=== PATIENT | female | born 1990 | race Hispanic/Latino ===

== ENCOUNTER 2021-05-09 19:20 | Emergency (ER) | payer SELFPAY ==
--- OUTSIDE RECORDS SUMMARY | 2021-05-09 19:23 | XMS REPORT | Continuity of Care Document ---
:1990 Author Organization [facility] t Address [address] [place] [address] Care Team Providers Name Role Phone Unavailable Unavailable Unavailable Problems Condition Condition Condition Status Onset Resolution Last Treating Co mments Source Name Details Category Date Date Treatment Clinician Date Type 2 Type [address] [facility] diabetes diabetes [facility] - mellitus mellitus Memori a with with l hyperglyce hyperglyce Ou tpati gilbert, gilbert, ent without without Clinics long-term long-term current current use of use of insulin insulin Pain of Pain of Diagnosis [facility] - thigh thigh Memoria l Outpati ent Clinics Allergies, Adverse Reactions, Alerts This patient has no known allergies or adverse reactions. Medications Ordered Filled Start Stop Current Ordering Indication Dosage Frequency Signature Comments Components Source Medication Medication Date Date Medication? Clinician (SIG) Name Name Metformin Metformin Yes Sharon [address] [facility] HCl HCl [place] [facility] Procedures This patient has no known procedures. Encounters Start End Encounter Admission Attending Care Care Encounter Source Date/Time Date/Time Type Type Clinicians Facility Department ID 2020 2020 [facility] [id number] [facility] 16:20[facility]00 16:20:00 [facility] Family Medicine l Medicine Outpati ent Clinics 2020-01-21 2020-01-21 [facility] [id number] [facility] 13:00:00 13:00:00 [facility] Family Medicine l Medicine Outpati ent Clinics 2019-11-22 2019-11-22 [facility] [id number] [facility] 15[facility]00[facility] 15:00:[address] [place] Medicine Medicine Outpati ent Clinics 2019-10-23 2019-10-23 [facility] [id number] [facility] 15:20:00 15:20:00 t [facility] Family Medicine Medicine Outpati ent Clinics Results This patient has no known results.
[2021-05-09] MEDS ORDERED: KETOROLAC 30 MG/ML INJ ONE (23:21)
--- NOTE | 2021-05-09 23:57 | ER ---
Nurse's Notes [facility] Name: Mary Knox Age: 31 yrs Sex: Female : 1990 Arrival Date: 05/09/2021 Time: 19:23 Bed DIS2 Private MD: Diagnosis: Pain in right shoulder Presentation: 05/09 20:00 Chief complaint: Patient states: I am having pain in my right shoulder that radiates to jb4 my fingers. It started this morning. I did not injure it to my knowledge. Coronavirus screen: Client denies travel out of the [place] in the last 14 days. Ebola Screen: No symptoms or risks identified at this time. Initial Sepsis Screen: Does the patient meet any 2 criteria? No. Patient's initial sepsis screen is negative. Does the patient have a suspected source of infection? No. Patient's initial sepsis screen is negative. Risk Assessment: Do you want to hurt yourself or someone else? Patient reports no desire to harm self or others. Onset of symptoms was May 09, 2021. Transition of care: patient was not received from another setting of care. 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 - Social history:: Smoking status: Patient denies any tobacco usage or history of. Patient/guardian denies using alcohol, street drugs. Screenin:44 Abuse screen: Denies threats or abuse. Nutritional screening: No deficits noted. em Tuberculosis screening: No symptoms or risk factors identified. Fall Risk None identified. Assessment: 05/10 00:46 General: Appears in no apparent distress. uncomfortable, Behavior is calm. Pain: em Complains of pain in left elbow. Vital Signs: 05/09 20:00 BP 133 / 85; Pulse 76; Resp 16; Temp 98.2(TE); Pulse Ox 99% on R/A; Weight 90.72 kg jb4 (R); Height 5 ft. 0 in. (152.40 cm) (R); Pain 8/10; 20:00 Body Mass Index 39.06 (90.72 kg, 152.40 cm) jb4 ED Course: 19:23 Patient arrived in ED. cf2 20:02 Triage completed. jb4 20:03 Arm band placed on right wrist. jb4 22:40 [facility] cp 22:40 Junito Epperson MD is Attending Physician. cp 22:44 Chauncey Castañeda, RN is Primary Nurse. em 22:44 Patient has correct armband on for positive identification. em 23:53 XRAY Shoulder RIGHT 2 view In Process Unspecified. EDMS 23:54 Don Mix MD is Referral Physician. cp 05/10 00:46 No provider procedures requiring assistance completed. Patient did not have IV access em during this emergency room visit. Administered Medications: 05/09 23:02 Drug: Ketorolac 30 mg Route: IM; Site: left deltoid; em 23:59 Follow up: Response: No adverse reaction; Marked relief of symptoms; Pain is decreased em Outcome: 23:56 Discharge ordered by MD. cp 05/10 00:47 Discharged to home ambulatory. em Condition: good Discharge instructions given to patient, Instructed on discharge instructions, follow up and referral plans. Demonstrated understanding of instructions, follow-up care, medications, Prescriptions given X 2. 00:48 Patient left the ED. em Signatures: Dispatcher [employer] [facility] Chauncey Castañeda, RN RN em Zack Bowling PA PA cp Bryson, James, RN RN jb4 Jonn Alcazar cf2
--- NOTE | 2021-05-09 23:57 | EDPHYS ---
Physician Documentation [facility] Name: Mary Knox Age: 31 yrs Sex: Female : 1990 Arrival Date: 05/09/2021 Time: 19:23 Bed DIS2 Private MD: ED Physician Junito Epperson HPI: 05/09 22:55 This 31 yrs old Female presents to ER via Ambulatory with complaints of cp Shoulder Pain, FINGER PAIN. 22:55 The patient or guardian complains of pain, that is acute. right anterior and right cp upper shoulder. Context: resulted from an unknown reason, The patient reports no decreased range of motion. The patient reports no obvious deformity. Onset: The symptoms/episode began/occurred this morning. 22:55 Associated signs and symptoms: Pertinent positives: tingling. 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 - Social history:: Smoking status: Patient denies any tobacco usage or history of. Patient/guardian denies using alcohol, street drugs. ROS: 23:00 Constitutional: Negative for body aches, chills, fever, poor PO intake. cp 23:00 Eyes: Negative for injury, pain, redness, and discharge. cp 23:00 ENT: Negative for ear pain, sore throat, difficulty swallowing, difficulty handling secretions. 23:00 Neck: Negative for pain with movement, pain at rest, stiffness. 23:00 Cardiovascular: Negative for chest pain, edema, palpitations. 23:00 Respiratory: Negative for cough, shortness of breath, wheezing. 23:00 Abdomen/GI: Negative for abdominal pain, nausea, vomiting, and diarrhea. 23:00 Back: Negative for pain at rest, pain with movement, radiated pain. 23:00 MS/extremity: Positive for pain, tenderness, of the right shoulder, Negative for injury or acute deformity, decreased range of motion, paresthesias, swelling. 23:00 Neuro: Negative for headache. 23:00 All other systems are negative. Exam: 23:10 Constitutional: The patient appears in no acute distress, alert, awake, cp non-diaphoretic, non-toxic, well developed, well nourished, obese. 23:10 Head/Face: Normocephalic, atraumatic. cp 23:10 Eyes: Periorbital structures: appear normal, Conjunctiva: normal, no exudate, no injection, Sclera: no appreciated abnormality, Lids and lashes: appear normal, bilaterally. 23:10 Neck: C-spine: vertebral tenderness, is not appreciated, crepitus, is not appreciated, ROM/movement: is normal, is supple, without pain, no range of motions limitations. 23:10 Chest/axilla: Inspection: normal, Palpation: is normal, no crepitus, no tenderness. 23:10 Cardiovascular: Rate: normal, Rhythm: regular, Pulses: Pulses are 2+ in right radial artery. 23:10 Respiratory: the patient does not display signs of respiratory distress, Respirations: normal, no use of accessory muscles, no retractions, labored breathing, is not present, Breath sounds: are clear throughout. 23:10 Musculoskeletal/extremity: Extremities: grossly normal except: noted in the anterior and super aspect right shoulder: pain, tenderness, ROM: limited active range of motion due to pain, in the right shoulder, the right fourth and fifth fingers Tingling of extremity. Vital Signs: 20:00 BP 133 / 85; Pulse 76; Resp 16; Temp 98.2(TE); Pulse Ox 99% on R/A; Weight 90.72 kg jb4 (R); Height 5 ft. 0 in. (152.40 cm) (R); Pain 8/10; 20:00 Body Mass Index 39.06 (90.72 kg, 152.40 cm) jb4 MDM: 22:47 Patient medically screened. cp 23:00 Differential diagnosis: tendonitis, sprain, bursitis. cp 23:55 Data reviewed: vital signs, nurses notes, radiologic studies, plain films. cp 23:55 Counseling: I had a detailed discussion with the patient and/or guardian regarding: the cp historical points, exam findings, and any diagnostic results supporting the discharge/admit diagnosis, radiology results. 23:55 Response to treatment: the patient's symptoms have mildly improved after treatment, and cp as a result, I will discharge patient. 05/09 22:48 Order name: XRAY Shoulder RIGHT 2 view cp 05/09 23:47 Order name: Naeem; Complete Time: 00:46 cp Administered Medications: 23:02 Drug: Ketorolac 30 mg Route: IM; Site: left deltoid; em 23:59 Follow up: Response: No adverse reaction; Marked relief of symptoms; Pain is decreased em Disposition: 05/10 06:48 Co-signature as Attending Physician, Junito Epperson MD. [email or web address] Disposition Summary: 05/09/21 23:56 Discharge Ordered Location: Home cp Problem: new cp Symptoms: have improved cp Condition: Stable cp Diagnosis - Pain in right shoulder cp Followup: cp - With: Don Mix MD - When: 2 - 3 days - Reason: Worsening of condition Discharge Instructions: - Discharge Summary Sheet cp - Shoulder Pain cp - Shoulder Range of Motion Exercises cp Forms: - Medication Reconciliation Form cp - Thank You Letter cp - Antibiotic Education cp - Prescription Opioid Use cp Prescriptions: - Cyclobenzaprine 10 mg Oral Tablet - take 1 tablet by ORAL route every 8 hours As needed; 20 tablet; Refills: 0, cp Product Selection Permitted - Diclofenac Sodium 75 mg Oral Tablet Sustained Release - take 1 tablet by ORAL route 2 times per day; 30 tablet; Refills: 0, Product cp Selection Permitted Signatures: Dispatcher [employer] Chauncey Lerner, RN RN Zack Gomez PA PA cp Bryson, James, RN RN jbJunito Saba MD MD [email or web address]
[2021-05-10 01:17] VITALS: BP 133/85; TEMP 98.2; O2SAT 99
--- NOTE | 2021-05-10 08:26 | RAD REPORT ---
EXAM DESCRIPTION: RAD - Shoulder Right 2 View - 05/09/2021 11:53 pm CLINICAL HISTORY: PAIN COMPARISON: No comparisons FINDINGS: No right shoulder fracture or dislocation. IMPRESSION: Unremarkable right shoulder.
== END 2021-05-10 00:48 | disposition home or self-care (01) ==
LOC: ER 19:20
DX: M25.511 Pain in right shoulder (principal); E11.9 Type 2 diabetes mellitus without complications
CPT/HCPCS: 96372; 99283

== ENCOUNTER 2021-07-27 21:08 | Emergency (ER) | payer SELFPAY ==
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
[2021-07-27] MEDS ORDERED: TETANUS & DIPHTHERIA TOX,ADULT 0.5 ML VIAL ONE (23:48)
[2021-07-27] MEDS ORDERED: HYDROCODONE/APAP 5/325 MG TAB ONE (23:48)
[2021-07-28 00:37] VITALS: BP 127/84; TEMP 97.7; O2SAT 100
--- OUTSIDE RECORDS SUMMARY | 2021-08-08 06:57 | XMS REPORT | Continuity of Care Document ---
:1990 Author Organization [facility] t Address [address] [place] [address] Care Team Providers Name Role Phone Unavailable [...] Sharon [address] [facility] HCl HCl [place] [facility] Procedures This patient has no known procedures. Encounters Start End Encounter Admission Attending Care Care Encounter Source Date/Time Date/Time Type Type Clinicians Facility Department ID 2020 2020 [facility] [id number] [facility] 16:20[facility]00 16:20:00 [facility] Family Medicine l Medicine Outpati ent Clinics 2020-01-21 2020-01-21 [facility] [id number] [facility] 13:00:00 13:00:00 [facility] Family Medicine l Medicine Outpati ent Clinics 2019-11-22 2019-11-22 [facility] [id number] 15:00:00 15:00:00 [facility] Medicine Medicine Outpati ent Clinics 2019-10-23 2019-10-23 [facility] [id number] 15:20:00 15:20:00 t [facility] Family Medicine Medicine Outpati ent Clinics Results This patient has no known results.
== END 2021-07-27 23:00 | disposition home or self-care (01) ==
LOC: ER 21:08
DX: T24.201A Burn of second degree of unspecified site of right lower limb, except ankle and foot, initial encounter (principal); E11.9 Type 2 diabetes mellitus without complications; X12.XXXA Contact with other hot fluids, initial encounter; Z23 Encounter for immunization
CPT/HCPCS: 90471; 90714; 99283

== ENCOUNTER 2022-08-03 08:27 | Inpatient (IN) | payer BC ==
--- OUTSIDE RECORDS SUMMARY | 2022-08-03 08:31 | XMS REPORT | Continuity of Care Document ---
:1990 Author Organization [facility] t Address [facility] [place] [address] Care Team Providers Name Role Phone Sharon Zamora Attending Clinician Unavailable Syed Michael Attending Clinician Unavailable Syed Michael Admitting Clinician Unavailable Payers Payer Name Policy Type Policy Number Effective Date Expiration Date S sofia [employer] 6 [id number] 2021 Common Spiri t [employer] Shield of 00:00:00 - [facility] Problems Condition Condition Condition Status Onset Resolution Last Treating Co mments Source Name Details Category Date Date Treatment Clinician Date [id number] Type 2 Problem Active Common diabetes Spirit mellitus - [facility] long-term current use of insulin Allergies, Adverse Reactions, Alerts Allergy Allergy Status Severity Reaction(s) Onset Inactive Treating Comm ents Source Name Type Date Date Clinician No Known DA Active U 2021-09 [facility] Social History Social Habit Start Date Stop Date Quantity Comments Source History of Tobacco Use Co mmon [facility] Sex Assigned At Com mon [facility] Smoking Status Start Date Stop Date Source Never Smoker Common [facility] Medications Ordered Filled Start Stop Current Ordering Indication Dosage Frequency Signature Comments Components Source Medication Medication Date Date Medication? Clinician (SIG) Name Name Metformin Metformin Yes Sharon 1 tablet Common HCl HCl [place] with a Spirit meal [facility] metFORMIN metFORMIN No 1{table BID metFORMIN HCl 1000 MG HCl 1000 MG t_with_ HCl 1000 a_meal} MG metFORMIN metFORMIN No 1{table BID metFORMIN HCl 1000 MG HCl 1000 MG t_with_ HCl 1000 a_meal} MG metFORMIN metFORMIN No 1{table BID metFORMIN HCl 1000 MG HCl 1000 MG t_with_ HCl 1000 a_meal} MG metFORMIN metFORMIN No 1{table BID metFORMIN HCl 1000 MG HCl 1000 MG t_with_ HCl 1000 a_meal} MG Vital Signs Vital Name Observation Time Observation Value Comments Source height 2021-11-16 14:40:00 61 [in_i] [facility] weight 2021-11-16 14:40:00 194.8 [lb_av] [facility] temperature 2021-11-16 14:40:00 97.8 [degF] [facility] bmi 2021-11-16 14:40:00 36.8 kg/m2 [facility] oximetry 2021-11-16 14:40:00 100 % [facility] respiratory rate 2021-11-16 14:40:00 16 /min Comm on [facility] blood pressure 2021-11-16 14:40:00 116 mm[Hg] [facility] - systolic [facility] blood pressure 2021-11-16 14:40:00 76 mm[Hg] [facility] diastolic [facility] height 2021-10-15 13:20:00 61 [in_i] [facility] weight 2021-10-15 13:20:00 193.8 [lb_av] [facility] temperature 2021-10-15 13:20:00 98.1 [degF] [facility] bmi 2021-10-15 13:20:00 36.61 kg/m2 [facility] oximetry 2021-10-15 13:20:00 99 % Common S pirit [facility] respiratory rate 2021-10-15 13:20:00 16 /min Comm on [facility] blood pressure 2021-10-15 13:20:00 120 mm[Hg] Common [facility] - systolic [facility] blood pressure 2021-10-15 13:20:00 70 mm[Hg] Common [facility] - diastolic [facility] Procedures This patient has no known procedures. Encounters Start End Encounter Admission Attending Care Care Encounter Source Date/Time Date/Time Type Type Clinicians Facility Department ID 2022-02-01 Outpatient Sera, STJEFFLC STLMLC [id number] Common 10:30:01 Sharon [facility] 2021-11-12 Outpatient Sera, STJEFFLC STLMLC [id number] Common 09:59:02 Sharon [facility] 2021-10-21 Outpatient Sera, STJEFFLC STLMLC [id number] Common 14:38:49 Sharon [facility] 2021-10-21 Outpatient Sera, STLMLC STLMLC [id number] Common 14:34:32 Sharon [facility] 2021-10-21 Outpatient Sera, STJEFFLC STLMLC [id number] Common 11:58:11 Sharon [id number] [facility] 2021-10-21 Outpatient Sera, STLMLC STLMLC [id number] Common 11:03:51 Sharon [address] [facility] 2022-07-07 2022-07-09 Inpatient UR Fernanda, HCAWH OBANTE [id number] [address] [facility] 11:27:00 13:44:00 ad Woman' s [facility] 2021-11-30 2021-11-30 (TEL) STLMLC STLMLC [id number] Co mmon 00:00:00 00:00:00 [facility] 2021-11-16 2021-11-16 OFFICE STLC STLC [id number] Co mmon 00:00:00 00:00:00 VISIT EST Spir it PT LEVEL 3 - [facility] 2021-11-05 2021-11-05 (TEL) STLMLC STLMLC [id number] Co mmon 00:00:00 00:00:00 Spirit - [facility] 2021-10-15 2021-10-15 OFFICE STLMLC STLMLC [id number] Co mmon 00:00:00 00:00:00 VISIT EST Spir it PT LEVEL 3 - [facility] 2020 2020 [id number] Common 16:20:00 16:20:[address] [facility] [address] [facility] 2020-01-21 2020-01-21 [facility] [id number] Common 13:00:00 13:00:00 t [facility] [address] [facility] 2019-11-22 2019-11-22 [facility] [id number] Common 15:00:00 15:00:00 t [facility] [address] [facility] 2019-10-23 2019-10-23 [facility] [id number] Common 15:20:00 15:20:00 t [facility] [address] [facility] Results Test Description Test Time Test Comments Results Result Comments Source GLUBED 2022-07-09 10:15:00 Test Item Value Reference Range Interpretation Comme nts GLUBED (test code = GLUBED) 99 mg/dL 65-110 N [id number] 06:32:00 Test Item Value Reference Range Interpretation Comments GLUBED (test code = GLUBED) 101 mg/dL 65-110 N [id number] 20:57:00 Test Item Value Reference Range Interpretation Comments GLUBED (test code = GLUBED) 129 mg/dL 65-110 H [id number] 20:22:00 Test Item Value Reference Range Interpretation Comments GLUBED (test code = GLUBED) 176 mg/dL 65-110 H [id number] 10:29:00 Test Item Value Reference Range Interpretation Comments GLUBED (test code = GLUBED) 119 mg/dL 65-110 H [id number] 06:29:00 Test Item Value Reference Range Interpretation Comments GLUBED (test code = GLUBED) 124 mg/dL 65-110 H [id number] 21:07:00 Test Item Value Reference Range Interpretation Comments GLUBED (test code = GLUBED) 105 mg/dL 65-110 N AG HEPATITIS B [id number] 17:00:00 Test Item Value Reference Range Interpretation Comments AG HEPATITIS B SURFACE (test code NONREACTIVE NONREACTIVE = HBSAG) AB HEPATITIS C [id number] 17:00:00 Test Item Value Reference Range Interpretation Comments AB HEPATITIS C (test code = NONREACTIVE NONREACTIVE HCVAB) SIGNAL TO CUTOFF (test code = 0.14 <0.80 N CUTOFF) AB [id number] 17:00:00 Test Item Value Reference Range Interpretation Comments AB TREPONEMA (test code = TREPAB) NONREACTIVE NONREACTIVE AB HIV 1 17:00:00 Test Item Value Reference Range Interpretation Comments AB HIV 1 2 (test NONREACTIVE NONREACTIVE [facility] = [id number]) 4th Gen HIV Ag/Ab Combo Screen [id number] 15:45:00 Test Item Value Reference Range Interpretation Comments GLUBED (test code = GLUBED) 91 mg/dL 65-110 N COMPREHENSIVE METABOLIC [id number] 15:36:00 Test Item Value Reference Range Interpretation Comments SODIUM (test code = NA) 137 mEq/L 135-145 N POTASSIUM (test code = K) 3.8 mEq/L 3.5-5.0 N CHLORIDE (test code = CL) 102 mEq/L 100-115 N CARBON DIOXIDE (test code = CO2) 26 mEq/L 22-31 N ANION GAP (test code = GAP) 13.10 10-20 N GLUCOSE (test code = GLU) 83 mg/dL 65-110 N BLOOD UREA NITROGEN (test code = 9 mg/dL 7-18 N BUN) GLOMERULAR FILTRATION RATE (test 117 ml/min >60 N code = GFR) CREATININE (test code = CREAT) 0.6 mg/dL 0.5-1.0 N TOTAL PROTEIN (test code = PROT) 6.9 gm/dL 6.3-8.2 N ALBUMIN (test code = ALB) 3.0 gm/dL 3.4-4.8 L CALCIUM (test code = CA) 8.6 mg/dL 8.4-10.2 N BILIRUBIN TOTAL (test code = BILT) 0.3 mg/dL 0.2-1.0 N SGOT/AST (test code = AST) 17 units/L 15-37 N SGPT/ALT (test code = ALT) 31 units/L 12-78 N ALKALINE PHOSPHATASE TOTAL (test 84 units/L 46-116 N code = ALKP) UR PROTEIN/CREATININE [id number] 15:28:00 Test Item Value Reference Range Interpretation Comments UR PROTEIN RANDOM (test code = <6.0 mg/dL PROTU) UR CREATININE RANDOM (test 33.3 mg/dL code = CREATU) PROTEIN/CREATININE RATIO (test 180.1 mg/gcrea <200 code = P/CRATIO) CBC W/AUTO [id number] 14:27:00 Test Item Value Reference Range Interpretation Comments WHITE BLOOD CELL (test code = WBC) 7.8 K/mm3 6.5-12.3 N RED BLOOD CELL (test code = RBC) 4.40 M/mm3 3.51-4.69 N HEMOGLOBIN (test code = HGB) 12.1 g/dL 10.1-13.8 N HEMATOCRIT (test code = HCT) 38.2 % 32.5-41.8 N MEAN CELL VOLUME (test code = MCV) 86.8 fL 84.6-96.6 N MEAN CELL HGB (test code = MCH) 27.5 pg 27.3-33.9 N MEAN CELL HGB CONCETRATION (test 31.7 gm/dL 32.0-34.2 L code = MCHC) RED CELL DISTRIBUTION WIDTH (test 13.0 % 12.2-16.3 N code = RDW) PLATELET COUNT (test code = PLT) 233 K/mm3 134-363 N MEAN PLATELET VOLUME (test code = 11.3 fL 9.2-12.7 N MPV) NEUTROPHIL % (test code = NT%) 74.8 % 57.9-77.3 N LYMPHOCYTE % (test code = LY%) 16.3 % 14.5-29.7 N MONOCYTE % (test code = MO%) 6.0 % 3.6-10.2 N EOSINOPHIL % (test code = EO%) 2.3 % 0.0-3.0 N BASOPHIL % (test code = BA%) 0.3 % 0.1-0.9 N NEUTROPHIL # (test code = NT#) 5.9 K/mm3 LYMPHOCYTE # (test code = LY#) 1.3 K/mm3 MONOCYTE # (test code = MO#) 0.5 K/mm3 EOSINOPHIL # (test code = EO#) 0.18 K/mm3 BASOPHIL # (test code = BA#) 0.0 K/mm3 RBC MORPHOLOGY REQUIRED (test code NORMAL NORMAL = RBCM) PLATELET MORPHOLOGY REQUIRED (test NORMAL NORMAL code = PLTMR) RUPTURE OF [id number] 13:57:00 Test Item Value Reference Range Interpretation Comments RUPTURE OF MEMBRANES (test code NON-RUPTURED = ROM) HEMOGLOBIN [id number] 00:00:00 Test Item Value Reference Range Interpretation Comments A1C (test code = 4548-4) 7.9 HEMOGLOBIN [id number] 00:00:00 Test Item Value Reference Range Interpretation Comments A1C (test code = 4548-4) 10.5
[2022-08-03] MEDS ORDERED: PENICILLIN G POT 5 MU/VIAL IV ONE (08:42)
[2022-08-03] MEDS ORDERED: NA CHLORIDE 0.9% 100 ML ONE (08:44)
[2022-08-03] MEDS ORDERED: PENICILLIN 5 MU in NA CHLORIDE 0.9% 100 ML IV ONE (08:53)
[2022-08-03] MEDS ORDERED: Ringers Lactate 1,000 ML IV PRN (08:53)
[2022-08-03] MEDS ORDERED: PROMETHAZINE INJ 25 MG/ML AMP IM PRN (08:53)
[2022-08-03] MEDS ORDERED: MEPERIDINE HCL 25 MG/ML SYR IV PRN (08:53)
[2022-08-03] MEDS ORDERED: BUTORPHANOL 1 MG/ML INJ IV PRN (08:53)
[2022-08-03] MEDS ORDERED: CARBOPROST TROME 250 MCG/ML IM PRN (08:53)
[2022-08-03] MEDS ORDERED: METHYLERGONOVINE 0.2MG/ML AMP IM PRN (08:53)
[2022-08-03] MEDS ORDERED: OXYTOCIN/LR 20 UNIT/1,000 ML BAG IV SCH ×2 (09:00→10:00)
[2022-08-03] MEDS ORDERED: Ringers Lactate 1,000 ML IV SCH (09:00)
[2022-08-03] MEDS ORDERED: LIDOCAINE 1% MPF 30 ML VIAL ONE (09:03)
[2022-08-03] MEDS ORDERED: BISACODYL 10 MG RECTAL SUPP RC PRN (09:31)
[2022-08-03] MEDS ORDERED: DOCUSATE NA/SENNA CONC 1 TAB PO PRN (09:31)
[2022-08-03] MEDS ORDERED: ACETAMINOPHEN 500 MG TAB PO PRN (09:31)
[2022-08-03] MEDS ORDERED: Oxycodone HCl/Acetaminophen 1 TAB TAB PO PRN ×2 (09:31)
[2022-08-03] MEDS ORDERED: DIPHENHYDRAMINE 25 MG TAB/CAP PO PRN (09:31)
--- NOTE | 2022-08-03 09:56 | PREOPHP ---
Date of Admission: 08/03/2022 History Of Present Illness: A 32-year-old, 4, para 3, at 37 weeks 6 days, came in active lab or. During the , noted to be insulin-dependent diabetic. Seen in consultation with Dr. Delbert guardado, high wireless sales consultant in [place]. Also noted to have oligohydramnios. Was scheduled for i nduction tomorrow. Came in today in active rapidly advancing labor. Family History: Cleft lip in a cousin. Otherwise, no significant family history. Past Surgical History: No previous surgeries. Allergies: NO ALLERGIES. Medications: Metformin prior to admission and then subsequently insulin. Social History: Does not smoke. Physical Examination: HEENT: Clear. Pupils equal, round, reactive to light and accommodation. Conjunctivae well perfused . No oral, lingual, or buccal lesions. Chest and Lungs: Clear. Heart: Without murmurs, thrills, heaves, rubs. Breasts: Without masses. Abdomen: Term size. Extremities: Clear without edema, cyanosis, or clubbing. Assessment And Plan: The patient was 3 cm on admission, nahed regularly, went to 8 cm within t he next 30-45 minutes. Anticipate vaginal delivery. She is strep positive. Penicillin has been started. The patient is also Rh posit farooq and immune to rubella. DALIA/KYRIE Voice ID: [id number]
[2022-08-03] MEDS: IBUPROFEN 600 MG TAB PO PRN ×3 (09:59→22:43)
--- NOTE | 2022-08-03 09:59 | DN ---
Surgeon: Hawk Oliva MD Procedure In Detail: This is a 32-year-old, 4, para 3, at 37 weeks and 6 days, scheduled for induction tomorrow. Came in active labor, rapidly advancing, went from 3 cm to 8 cm within 35 minut es, the 40 minutes tops. Delivered spontaneously of an estimated 6 pounds female, Apgars 9 and 10. No episiotomy. No laceration. Schultze delivery of the placenta, which was inspected and intact and normal. Less than 250 cc blood loss. Rh positive, immune to rubella, strep positive. She did rece farooq 5 million units of penicillin prior to the delivery. Tolerated all procedures well. Will be ysabel cked for diabetes. We will let her monitor herself. Her insulin dose of course will probably change rather rapidly and the patient is aware of that. Final Diagnoses: Term intrauterine at 37 weeks 6 days, insulin-dependent diabetes, oligohy dramnios, spontaneous labor, vaginal delivery, beta strep prophylaxis. DALIA/MODL Voice ID: [id number] Report ID: [id number]
[2022-08-03 10:20] VITALS: BMI 39.6
[2022-08-03 11:04] LABS: Absolute Lymphocytes (CBC) 1.4 K/uL (0.7-4.9); Hematocrit 36.6 % (36.0-45.0); Lymphocytes % 22.5 % (15.3-44.8); MPV 9.7 fL (7.6-11.3); RBC Red Blood Cell Count 4.35 M/uL (3.86-4.86)
[2022-08-03 11:22] LABS: Urine Bilirubin NEGATIVE (Negative); Urine Blood Negative (Negative); Urine Clarity Turbid (Clear); Urine Color Yellow (Yellow); Urine Glucose NEGATIVE (Negative); Urine Mucus Slight /HPF (None Seen); Urine Protein TRACE (Negative); Urine RBC <5 /HPF (None Seen); Urine Urobilinogen Normal (Normal)
[2022-08-03] MEDS ORDERED: PENICILLIN 2.5 MU in NA CHLORIDE 0.9% 100 ML IV SCH (12:45)
[2022-08-04] MEDS: IBUPROFEN 600 MG TAB PO PRN ×2 (04:45→11:01)
--- NOTE | 2022-08-04 09:39 | DS ---
Hospital Course: A 32-year-old, 4, para 3, at 37 weeks and 6 days, scheduled for induction, the next day came in active rapidly advancing labor, went from 3 to 8 cm and then delivered with an h our or so after admission, delivered of a 6-pound 2-ounce female, Apgars 9 and 10. No episiotomy. N o laceration. Schultze delivery of the placenta. 250 cc or less blood loss. Given 5 million units of penicillin as she was beta strep positive. The patient is Rh positive, immune to rubella. Postpa rtum; afebrile, ambulating, voiding normally. Lochia is normal. No complaints or problems. Offered flu shot and Tdap shot. She will return to the office in 3 to 6 weeks for followup to report any te mperature elevation of 100 degrees or greater, severe pain, heavy bleeding, or any other type of abno rmalities. Requests no analgesics on dismissal. Full instructions given. Final Diagnoses: Intrauterine gestation, 37 weeks 6 days, spontaneous labor and delivery, insulin-de pendent diabetes during the . Consultation with high-ecological risk assessor Dr. Michael at [facility]. Oligohydramnios, penicillin prophylaxis, beta strep positive. NBC/MODL Voice ID: [id number] Report ID: [id number]
[2022-08-04 14:08] VITALS: BP 103/68; TEMP 97.6
[2022-08-04 21:13] LABS: RPR (Rapid Plasma Reagin) NON-REACT (NON-REACT)
[2022-08-06 12:12] LABS: HBsAG Nonreactive (Nonreactive)
== END 2022-08-04 11:55 | disposition home or self-care (01) | DRG 807 ==
LOC: 2ND-WC 08:27
PROVIDERS: ADMIT Specialist; ATTEND Specialist
PROC: 10E0XZZ Delivery of Products of Conception, External Approach (ICD-10-PCS; principal; 2022-08-03)
DX: O41.03X0 Oligohydramnios, third trimester, not applicable or unspecified (principal); Z37.0 Single live birth; O99.824 Streptococcus B carrier state complicating childbirth; O24.424 Gestational diabetes mellitus in childbirth, insulin controlled; Z79.4 Long term (current) use of insulin; Z3A.37 37 weeks gestation of pregnancy
CPT/HCPCS: 36415; 81001; 85025; 86592; 86901; 87340; J2175; J2210; J2540; J2590; J7120

== ENCOUNTER 2022-10-30 17:48 | Emergency (ER) | payer BC ==
--- OUTSIDE RECORDS SUMMARY | 2022-10-30 17:51 | XMS REPORT | Continuity of Care Document ---
:1990 Author Organization [facility] t Address [address] [place] [address] Care Team Providers Name Role Phone Pcp, Patient Does Not Have A Primary Care Physician [id number] KATIANA GOMEZ Attending Clinician Unavailable Sharon Zamora Attending Clinician Unavailable Katiana Gomez MD Attending Clinician Syed Michael Attending Clinician Unavailable KATIANA GOMEZ Admitting Clinician Unavailable Syed Michael Admitting Clinician Unavailable Payers Payer Name Policy Type Policy Number Effective Date Expiration Date S sof[facility] [id number] 2021 00:00:00 [employer] 6 [id number] 2021 Common Spiri t [employer] Shield of 00:00:[address] - [facility] Problems Condition Condition Condition Status Onset Resolution Last Treating Co mments Source Name Details Category Date Date Treatment Clinician Date Encounter Encounter Disease Active Overview: Univers for for 10-06 Formattin ity of consultati consultati 00:00: g of this [place] on for on for 00 note Medical female female might be Branch sterilizat sterilizat different ion ion from the original. Added automatic ally from request for surgery [id number] Gestationa Gestationa Disease Active U nivers l diabetes l diabetes 4-28 [place] y of mellitus, mellitus, [place] ante[place] antepartum 00 Me dical Branch Vaginal Vaginal Disease Active Univers yeast yeast -28 [place] of infection [place] Abnormal Abnormal Disease Active Overview: Un raman maternal maternal -21 Formattin ity of glucose glucose 00:00: g of this [place] tolerance, tolerance, 00 note Me dical antepartum antepartum might be Branch different from the original. 1hr gtt 136mgdl, needs 3hr-faile d 3hr gtt Fasting 981hr 1972hr 1343hr 124 Multiparit Multiparit Disease Active U nivers y y 4-20 ity of 00:00: [place] 00 Medical Branch Obesity Obesity Disease Active Univers affecting affecting 4-20 [place] [facility] Branch Supervisio Supervisio Disease Active U nivers n of high n of high 4-20 ity of risk risk 00:00: [place] , , 00 Me dical antepartum antepartum Br anch History of History of Disease Active Overview : Univers hepatitis hepatitis 4-20 Formattin i ty of B B 00:00: g of this [place] 00 note Medical might be Branch different from the original. In previous [id number] Type 2 Problem Common diabetes Spirit mellitus - [facility] long-term current use of insulin Allergies, Adverse Reactions, Alerts Allergy Allergy Status Severity Reaction(s) Onset Inactive Treating Comm ents Source Name Type Date Date Clinician No Known DA Active U 2021-09 [facility] 0-12 [facility] 00:[facility]: [facility] [place] NO KNOWN Drug Active Univers ALLERGIE Class ity of S [facility] Social History Social Habit Start Date Stop Date Quantity Comments Source History of Common Spirit - Tobacco Use [facility] Alcohol intake 2022-10-06 2022-10-06 Ex-drinker University 00:00:00 00:00:00 (finding) [facility] Exposure to 2022-09-25 2022-10-05 Not sure University SARS-CoV-2 00:00:00 10:52:00 [facility] (event) [place] Tobacco use and 2016-01-14 2016-01-14 Smokeless tobacco Un iversity of exposure 00:00:00 00:00:00 non-user [facility] Sex Ass[birth year] At [birth year] Universit y of 00:00:00 00:00:00 [facility] Smoking Status Start Date Stop Date Source Never smoked tobacco [facility] Medications Ordered Filled Start Stop Current Ordering Indication Dosage Frequency Signature Comments Components Source Medication Medication Date Date Medication? Clinician (SIG) Name Name metFORMIN 2021-09 Yes Univers 1,000 mg 1-09 ity of tablet 00:00: [address] metFORMIN 2021-09 Yes Univers 1,000 mg 1-09 ity of tablet 00:00: [address] metFORMIN 2021-09 Yes Univers 1,000 mg 1-09 ity of tablet 00:00: [address] metFORMIN 2021-09 Yes Univers 1,000 mg 1-09 ity of tablet 00:00: [address] LEVEMIR 2021-09 Yes Univers FLEXTOUCH 0-16 ity of U-100 00:00: [place] INSULN 100 00 Medical unit/mL (3 Branch mL) injection LEVEMIR 2021-09 Yes Univers FLEXTOUCH 0-16 ity of U-100 00:00: [place] INSULN 100 00 Medical unit/mL (3 Branch mL) injection LEVEMIR 2021-09 Yes Univers FLEXTOUCH 0-16 ity of U-100 00:00: [place] INSULN 100 00 Medical unit/mL (3 Branch mL) injection LEVEMIR 2021-09 Yes Univers FLEXTOUCH 0-16 ity of U-100 00:00: [place] INSULN 100 00 Medical unit/mL (3 Branch mL) injection proMETHazin 2022- No [id number] 25mg Take 1 Univers e 01-22 tablet by ity of (PHENERGAN) 00:00: 00:00 mouth [place] 25 mg 00 :00 every 4 Medical tablet (four) Branch hours as needed for Nausea and Vomiting (N/V). proMETHazin 2022- No [id number] 25mg Take 1 Univers e 01-22 tablet by ity of (PHENERGAN) 00:00: 00:00 [place] 25 mg 00 :00 every 4 Medical tablet (four) Branch hours as needed for Nausea and Vomiting (N/V). clotrimazol 2022- No [id number] 1{appli Insert 1 Univers e 01-21 cator} Applicator ity of (CLOTRIMAZO 00:00: 00:00 into [facility] [place] [facility]) 1 % 00 :00 vagina at Medic al vaginal bedtime. Branch cream clotrimazol 2022- No [id number] 1{appli Insert 1 Univers e 01-21 cator} Applicator ity of (CLOTRIMAZO 00:00: 00:00 into [place] [address]) 1 % 00 :00 vagina at Medic al vaginal bedtime. Branch cream PNV without Yes [id number] 1{each} Take 1 Univers Ca-Iron 4-20 Each by ity of PsCmplx-FA 00:00: mouth [place] (SELECT-OB, daily. Medica l FOLIC Branch ACID,) 29-1 mg Chew PNV without 2015- Yes [id number] 1{each} Take 1 Univers Ca-Iron 4-20 Each by ity of PsCmplx-FA 00:00: mouth [place] (SELECT-OB, daily. Medica l FOLIC Branch ACID,) 29-1 mg Chew PNV without 2015- Yes [id number] 1{each} Take 1 Univers Ca-Iron 4-20 Each by ity of PsCmplx-FA 00:00: mouth [place] (SELECT-OB, 00 daily. Medica l FOLIC Branch ACID,) 29-1 mg Chew PNV without 2015- Yes [id number] 1{each} Take 1 Univers Ca-Iron 4-20 Each by ity of PsCmplx-FA 00:00: mouth [place] (SELECT-OB, 00 daily. Medica l FOLIC Branch ACID,) 29-1 mg Chew Metformin Metformin Yes Sharon 1 tablet Common HCl HCl [place] with a Spirit meal [facility] metFORMIN metFORMIN No 1{table BID [...] Observation Time Observation Value Comments Source height 2022-10-22 08:00:00 61 [in_i] [facility] weight 2022-10-22 08:00:00 190.6 [lb_av] [facility] temperature 2022-10-22 08:00:00 97.6 [degF] [facility] bmi 2022-10-22 08:00:00 36.01 kg/m2 [facility] oximetry 2022-10-22 08:00:00 97 % [facility] respiratory rate 2022-10-22 08:00:00 16 /min Comm [facility] blood pressure 2022-10-22 08:00:00 119 mm[Hg] [facility] systolic [facility] blood pressure 2022-10-22 08:00:00 77 mm[Hg] [facility] diastolic [facility] Systolic blood 2022-10-06 15:23:00 123 mm[Hg] Univer sity of [facility] Diastolic blood 2022-10-06 15:23:00 86 mm[Hg] Unive rsity [facility] Heart rate 2022-10-06 15:23:00 65 /min [facility] Body temperature 2022-10-06 15:23:00 36.67 [facility] 2022-10-06 15:23:00 16 /min [facility] Body height 2022-10-06 15:23:00 157.5 cm Universi ty [facility] [place] Body weight 2022-10-06 15:23:00 87.544 kg Universi ty [facility] BMI 2022-10-06 15:23:00 35.30 kg/m2 Universi [facility] Oxygen saturation in 2022-10-06 15:23:00 99 /min University Arterial blood by [facility] Pulse oximetry Branch respiratory rate 2021-11-16 14:40:00 16 /min [facility] blood pressure 2021-11-16 14:40:00 116 mm[Hg] Common [facility] systolic [facility] blood pressure 2021-11-16 14:40:00 76 mm[Hg] Common [facility] diastolic [facility] height 2021-11-16 14:40:00 61 [in_i] [facility] weight 2021-11-16 14:40:00 194.8 [lb_av] [facility] temperature 2021-11-16 14:40:00 97.8 [degF] [facility] bmi 2021-11-16 14:40:00 36.8 kg/m2 [facility] oximetry 2021-11-16 14:40:00 100 % [facility] height 2021-10-15 13:20:00 61 [in_i] [facility] weight 2021-10-15 13:20:00 193.8 [lb_av] [facility] temperature 2021-10-15 13:20:00 98.1 [degF] [facility] bmi 2021-10-15 13:20:00 36.61 kg/m2 [facility] oximetry 2021-10-15 13:20:00 99 % [facility] respiratory rate 2021-10-15 13:20:00 16 /min [facility] blood pressure 2021-10-15 13:20:00 120 mm[Hg] Common [facility] - systolic [facility] blood pressure 2021-10-15 13:20:00 70 mm[Hg] Common [facility] - diastolic [facility] Procedures This patient has no known procedures. Encounters Start End Encounter Admission Attending Care Care Encounter Source Date/Time Date/Time Type Type Clinicians Facility Department ID 2022-10-20 Outpatient Keith GOMEZ [facility] [id number] Univers 16:56:14 KATIANA castle [facility] 2022-02-01 Outpatient [place], STLMLC STLC [id number] Common 10:30:01 Sharon [facility] 2021-11-12 Outpatient [place], STLMLC STLC [id number] Common 09:59:02 Sharon [facility] 2021-10-21 Outpatient [place], STLMLC STLC [id number] Common 14:38:49 Sharon [facility] 2021-10-21 Outpatient [place], STLMLC STLMLC [id number] Common 14:34:32 Sharon [facility] 2021-10-21 Outpatient [place], STLMLC STLMLC [id number] Common 11:58:11 Sharon [address] [facility] 2021-10-21 Outpatient [place], STLMLC STLMLC [id number] Common 11:03:51 Sharon [address] [facility] 2022-10-25 2022-10-25 Telephone Patricia [facility] [id number] Univers 00:00:00 00:00:00 Katiana MEHTA [id number] i ty of [id number] [facility] [id number] [address] 2022-10-22 2022-10-22 OFFICE STLC STLC [id number] Co mmon 00:00:00 00:00:00 VISIT EST Spir it PT LEVEL 3 - [facility] 2022-10-20 2022-10-20 Outpatient Keith GOMEZ [facility] [id number] Univers 14:00:00 14:00:00 KATIANA castle [facility] 2022-10-06 2022-10-06 Outpatient R ADKARMA, [facility] [id number] Univers 09:30:00 09:57:01 KATIANA castle [facility] 2022-10-06 2022-10-06 Office Adum, [facility] [id number] Univers 09:30:00 09:57:01 Visit Katiana Sparrow JANINE [id number] i ty of W[place]'S 4[place]2.7.2.686 [place] [id number] [address] 2022-10-06 2022-10-06 Prep For Adkarma, [facility] [id number] Univers 00:00:00 00:00:00 Surgery Katiana Sparrow ELISE [id number] ity of [place] [id number] [place] PROFESS[place] [id number] Id dical [address] 2022-07-07 2022-07-09 Inpatient UR Fernanda, [facility] [id number] [facility] 11:27:00 13:44:00 Ziad [facility] 2021-11-30 2021-11-30 (TEL) STLMLC STLMLC [id number] Co mmon 00:00:00 00:00:00 [facility] 2021-11-16 2021-11-16 OFFICE STLMLC STLMLC [id number] Co mmon 00:00:00 00:00:00 VISIT EST Spir it PT LEVEL 3 - [facility] 2021-11-05 2021-11-05 (TEL) STLMLC STLMLC [id number] Co mmon 00:00:00 00:00:00 [facility] 2021-10-15 2021-10-15 OFFICE STLMLC STLMLC [id number] Co mmon 00:00:00 00:00:00 VISIT EST Spir it PT LEVEL 3 - [facility] 2020 2020 [facility] [id number] Common 16:20:00 16:20:[address] [facility] [address] [facility] 2020-01-21 2020-01-21 Outpatient Sigrid Mattat [id number] Common 13:00:00 13:00:00 [facility] [address] [facility] 2019-11-22 2019-11-22 Outpatient [place] [facility] [id number] Common 15:00:00 15:00:00 [facility] [address] [facility] 2019-10-23 2019-10-23 Outpatient [place]rid [place] [id number] Common 15:20:00 15:20:00 [facility] [address] [facility] Results Test Description Test Time Test Comments Results Result Comments Source HEMOGLOBIN A1C 2022-10-22 00:00:00 Test Item Value Reference Range Interpretation Comme nts A1C (test code = 4548-4) 5.4 [id number] 10:15:00 Test Item Value Reference Range Interpretation Comments GLUBED (test code = GLUBED) 99 mg/dL 65-110 N [id number] 06:32:00 Test Item Value Reference Range Interpretation Comments GLUBED (test code = GLUBED) 101 mg/dL 65-110 N [id number] 20:57:00 Test Item Value Reference Range Interpretation Comments GLUBED (test code = GLUBED) 129 mg/dL 65-110 H [id number] 20:22:00 Test Item Value Reference Range Interpretation Comments GLUBED (test code = GLUBED) 176 mg/dL 65-110 H [id number] 10:29:00 Test Item Value Reference Range Interpretation Comments GLUBED (test code = GLUBED) 119 mg/dL 65-110 H [id number] 06:29:00 Test Item Value Reference Range Interpretation Comments GLUBED (test code = GLUBED) 124 mg/dL 65-110 H [id number] 21:07:00 Test Item Value Reference Range Interpretation Comments GLUBED (test code = GLUBED) 105 mg/dL 65-110 N AG HEPATITIS B [id number] 17:00:00 Test Item Value Reference Range Interpretation Comments AG HEPATITIS B SURFACE (test code NONREACTIVE NONREACTIVE = HBSAG) AB HEPATITIS C [id number] 17:00:00 Test Item Value Reference Range Interpretation Comments AB HEPATITIS C (test code = NONREACTIVE NONREACTIVE HCVAB) SIGNAL TO CUTOFF (test code = 0.14 <0.80 N CUTOFF) AB [id number] 17:00:00 Test Item Value Reference Range Interpretation Comments AB TREPONEMA (test code = TREPAB) NONREACTIVE NONREACTIVE AB HIV 1 17:00:00 Test Item Value Reference Range Interpretation Comments AB HIV 1 2 (test NONREACTIVE NONREACTIVE Done by [employer] code = WSD45QQ) 4th Gen HIV Ag/Ab Combo Screen [id number] 15:45:00 Test Item Value Reference Range Interpretation Comments GLUBED (test code = GLUBED) 91 mg/dL 65-110 N COMPREHENSIVE METABOLIC [id number] 15:36:00 Test Item Value Reference Range Interpretation [...] 46-116 N code = ALKP) UR PROTEIN/CREATININE [id number] 15:28:00 Test Item Value Reference Range Interpretation Comments UR PROTEIN RANDOM (test code = <6.0 mg/dL PROTU) UR CREATININE RANDOM (test 33.3 mg/dL code = CREATU) PROTEIN/CREATININE RATIO (test 180.1 mg/gcrea <200 code = P/CRATIO) CBC W/AUTO [id number] 14:27:00 Test Item Value Reference Range Interpretation [...] NORMAL NORMAL code = PLTMR) RUPTURE OF [id number] 13:57:00 Test Item Value Reference Range Interpretation Comments RUPTURE OF MEMBRANES (test code NON-RUPTURED = ROM) HEMOGLOBIN [id number] 00:00:00 Test Item Value Reference Range Interpretation Comments A1C (test code = 4548-4) 7.9 HEMOGLOBIN [id number] 00:00:00 Test Item Value Reference Range Interpretation Comments A1C (test code = 4548-4) 10.5
[2022-10-30] MEDS ORDERED: Ringers Lactate 1,000 ML IV ONE (18:38)
[2022-10-30] MEDS ORDERED: METOCLOPRAMIDE 10 MG/2mL INJ ONE (18:38)
--- NOTE | 2022-10-30 19:02 | RAD REPORT ---
EXAM DESCRIPTION: CT - Head Brain Wo Cont - 10/30/2022 6:46 pm CLINICAL HISTORY: Dizziness COMPARISON: none TECHNIQUE: Computed axial tomography of the head was obtained. IV contrast was not requested. All CT scans are performed using dose optimization technique as appropriate and may include automated exposure control or mA/KV adjustment according to patient size. FINDINGS: An intracranial bleed is not seen The ventricles are normal in caliber No significant hypodense areas within the brain visualized No extra-axial fluid collection is noted. Fluid within the sinuses/ mastoids is not seen IMPRESSION: No acute intracranial abnormality is seen If patient's symptoms persist MRI of the brain would be recommended
[2022-10-30 19:10] LABS: Absolute Lymphocytes (CBC) 1.3 K/uL (0.7-4.9); Hematocrit 37.9 % (36.0-45.0); Lymphocytes % 20.2 % (15.3-44.8); MCV 84.3 fL (80-100); MPV 7.7 fL (7.6-11.3)
[2022-10-30 19:25] LABS: Albumin 3.7 g/dL (3.4-5.0); Bilirubin Total 0.4 mg/dL (0.2-1.0); Potassium 3.7 mmol/L (3.5-5.1); Protein, Total 8.1 g/dL (6.4-8.2)
--- NOTE | 2022-10-30 19:33 | EDPHYS ---
Physician Documentation [facility] Name: Mary Knox Age: 32 yrs Sex: Female : 1990 Arrival Date: 10/30/2022 Time: 17:49 Bed 8 Private MD: Sharon Zamora ED Physician Julius Kurtz HPI: 10/30 17:59 This 32 yrs old Female presents to ER via Ambulatory with complaints of jmm Headache, Nausea/Vomiting. 17:59 The patient complains of pain to the forehead. Onset: The symptoms/episode jmm began/occurred gradually, 1 day(s) ago. Associated signs and symptoms: Pertinent negatives: fever. Is a 32-year-old female with history of diabetes mellitus the presents emerged part with complaints of headache and vomiting beginning a day ago. Patient denies fever, neck stiffness. Pain was gradual onset. Denies any visual disturbances. Historical: - Allergies: 17:53 No Known Allergies; hb - PMHx: 17:53 diabetes mellitus; hb - Immunization history:: Adult Immunizations up to date. - Social history:: Smoking status: Patient denies any tobacco usage or history of. ROS: 17:59 Constitutional: Negative for fever, chills, and weight loss, Cardiovascular: Negative jmm for chest pain, palpitations, and edema, Respiratory: Negative for shortness of breath, cough, wheezing, and pleuritic chest pain. 17:59 Abdomen/GI: Positive for vomiting. 17:59 Neuro: Positive for headache. 17:59 All other systems are negative. Exam: 17:59 Constitutional: This is a well developed, well nourished patient who is awake, alert, jmm and in no acute distress. Head/Face: atraumatic. Eyes: EOMI, no conjunctival erythema appreciated ENT: Moist Mucus Membranes Neck: Trachea midline, Supple Chest/axilla: Normal chest wall appearance and motion. Cardiovascular: Regular rate and rhythm. No edema appreciated Respiratory: Normal respirations, no respiratory distress appreciated Abdomen/GI: Non distended Back: Normal ROM Skin: General appearance color normal MS/ Extremity: Moves all extremities, no obvious deformities appreciated, no edema noted to the lower extremities Neuro: Awake and alert Vital Signs: 17:52 BP 122 / 84; Pulse 81; Resp 16; Temp 97.7; Pulse Ox 100% on R/A; Weight 86.18 kg; hb Height 5 ft. (152.40 cm); Pain 0/10; 19:46 BP 120 / 74; Pulse 78; Resp 19; Temp 97.8; Pulse Ox 100% ; Pain 5/10; ke1 17:52 Body Mass Index 37.11 (86.18 kg, 152.40 cm) hb MDM: 17:59 Patient medically screened. [facility] 19:30 Data reviewed: vital signs, nurses notes. [facility] 19:30 I considered the following discharge prescriptions or medication management in the [facility] emergency department Medications were administered in the Emergency Department. See MAR. Counseling: I had a detailed discussion with the patient and/or guardian regarding: the historical points, exam findings, and any diagnostic results supporting the discharge/admit diagnosis, lab results, radiology results. ED course: Patient is alert nontoxic in appearance in the ED. Headache mild relief. Patient advised follow-up PCP otherwise given strict return precautions. Patient understood and agrees plan of care. I do not currently suspect subarachnoid hemorrhage or meningitis.. 10/30 18:01 Order name: CBC with Diff; Complete Time: 19:25 [facility] 10/30 18:01 Order name: CMP; Complete Time: 19:25 [facility] 10/30 18:05 Order name: CT Head Brain wo Cont; Complete Time: 19:03 [facility] 10/30 18:01 Order name: Saline Lock; Complete Time: 18:40 [facility] Administered Medications: 18:40 Drug: Reglan (metoCLOPramide) 20 mg Route: IVP; Site: right antecubital; bp 18:40 Drug: Lactated Ringers Solution 1000 ml Route: IV; Rate: 1000 bolus; Site: right bp antecubital; 19:47 Drug: Decadron - Dexamethasone 10 mg Route: IVP; Site: right antecubital; ke1 19:48 Follow up: Response: Medication administered at discharge. ke1 19:47 Drug: Ketorolac 15 mg Route: IVP; Site: right antecubital; ke1 19:47 Follow up: Response: Medication administered at discharge. ke1 Disposition Summary: 10/30/22 19:32 Discharge Ordered Location: Home [facility] Condition: Stable [facility] Diagnosis - Headache [facility] - Vomiting [facility] Followup: [facility] - With: Jack Alicea MD - When: 2 - 3 days - Reason: Recheck today's complaints, Continuance of care, Re-evaluation by your physician Discharge Instructions: - Discharge Summary Sheet jm - General Headache Without Cause jmm - Vomiting, Adult jm Forms: - Medication Reconciliation Form [facility] - Thank You Letter brittany - Antibiotic Education chet - Prescription Opioid Use [facility] Prescriptions: - ondansetron 4 mg Oral tablet,disintegrating - take 1 tablet by ORAL route every 4-6 hours As needed; 20 tablet; Refills: 0, [facility] Product Selection Permitted Signatures: Dispatcher [employer] EDMS Roberto Szymanski PA PA jmm Baxter, Heather, RN RN Supa Sarah, RN RN Omar Zimmer RN RN ke1
--- NOTE | 2022-10-30 19:33 | ER ---
Nurse's Notes [facility] Name: Mary Knox Age: 32 yrs Sex: Female : 1990 Arrival Date: 10/30/2022 Time: 17:49 Bed 8 Private MD: Sharon Zamora Diagnosis: Headache;Vomiting Presentation: 10/30 17:52 Chief complaint: N/V and headache x 2 days. Tolerating fluids, not tolerating food. hb Denies pain/fever. Coronavirus screen: Client presents with at least one sign or symptom that may indicate coronavirus-19. Standard/surgical mask placed on the client. Provider contacted for isolation considerations. Ebola Screen: No symptoms or risks identified at this time. Initial Sepsis Screen: Does the patient meet any 2 criteria? No. Patient's initial sepsis screen is negative. Does the patient have a suspected source of infection? No. Patient's initial sepsis screen is negative. Risk Assessment: Do you want to hurt yourself or someone else? Patient reports no desire to harm self or others. Onset of symptoms was October 29, 2022. 17:52 Method Of Arrival: Ambulatory hb 17:52 Acuity: VIMAL 3 hb Triage Assessment: 17:55 Headache History: The patient has had previous headaches and this one is different than bp previous episodes. General: Appears in no apparent distress. uncomfortable, Behavior is calm, cooperative, appropriate for age. Pain: Complains of pain in head Pain currently is 6 out of 10 on a pain scale. Pain began 1 day ago. Also complains of nausea. EENT: No deficits noted. Neuro: Level of Consciousness is awake, alert, obeys commands, Oriented to Appropriate for age. Cardiovascular: No deficits noted. Respiratory: No deficits noted. GI: Reports nausea. : No signs and/or symptoms were reported regarding the genitourinary system. Derm: No deficits noted. Musculoskeletal: No deficits noted. Historical: - Allergies: 17:53 No Known Allergies; hb - PMHx: 17:53 diabetes mellitus; hb - Immunization history:: Adult Immunizations up to date. - Social history:: Smoking status: Patient denies any tobacco usage or history of. Screenin:00 [facility] ED Fall Risk Assessment (Adult) History of falling in the last 3 months, bp including since admission No falls in past 3 months (0 pts). Abuse screen: Denies threats or abuse. Denies injuries from another. Nutritional screening: No deficits noted. Tuberculosis screening: No symptoms or risk factors identified. Assessment: 17:55 General: SEE TRIAGE NOTE. bp Vital Signs: 17:52 BP 122 / 84; Pulse 81; Resp 16; Temp 97.7; Pulse Ox 100% on R/A; Weight 86.18 kg; hb Height 5 ft. (152.40 cm); Pain 0/10; 19:46 BP 120 / 74; Pulse 78; Resp 19; Temp 97.8; Pulse Ox 100% ; Pain 5/10; ke1 17:52 Body Mass Index 37.11 (86.18 kg, 152.40 cm) hb ED Course: 17:49 Patient arrived in ED. am2 17:49 Sharon Zamora FNP-C is Private Physician. am2 17:50 [facility] 17:50 Julius Kurtz MD is Attending Physician. [facility] 17:53 Triage completed. hb 17:54 Arm band placed on. hb 18:00 Patient has correct armband on for positive identification. Bed in low position. Call bp light in reach. Side rails up X2. 18:13 Supa Montanez, SITA is Primary Nurse. bp 18:45 Inserted saline lock: 20 gauge in right antecubital area, using aseptic technique. bp Blood collected. 18:48 CT Head Brain wo Cont In Process Unspecified. EDMS 19:32 Jack Alicea MD is Referral Physician. [facility] 19:48 No provider procedures requiring assistance completed. IV discontinued. ke1 Administered Medications: 18:40 Drug: Reglan (metoCLOPramide) 20 mg Route: IVP; Site: right antecubital; bp 18:40 Drug: Lactated Ringers Solution 1000 ml Route: IV; Rate: 1000 bolus; Site: right bp antecubital; 19:47 Drug: Decadron - Dexamethasone 10 mg Route: IVP; Site: right antecubital; ke1 19:48 Follow up: Response: Medication administered at discharge. ke1 19:47 Drug: Ketorolac 15 mg Route: IVP; Site: right antecubital; ke1 19:47 Follow up: Response: Medication administered at discharge. ke1 Medication: 19:48 VIS not applicable for this client. ke1 Outcome: 19:32 Discharge ordered by MD. soto 19:48 Discharged to home ambulatory. ke1 19:48 Condition: good 19:48 Discharge instructions given to patient. 19:48 Patient left the ED. ke1 Signatures: Dispatcher [employer] EDMS Roberto Szymanski PA PA jmm Baxter, Heather RN RN Joya Burton Brian RN RN Omar Burns RN RN ke1
[2022-10-30 20:23] VITALS: O2SAT 100
[2022-10-30 20:25] VITALS: BP 120/74; TEMP 97.8
== END 2022-10-30 19:48 | disposition home or self-care (01) ==
LOC: ER 17:48
DX: R51.9 Headache, unspecified (principal); R11.10 Vomiting, unspecified; E11.9 Type 2 diabetes mellitus without complications
CPT/HCPCS: 85025; 36415; 80053; 70450; 96375; 96374; 99284; J2765; J7120

== ENCOUNTER 2025-06-17 11:30 | Emergency (ER) | payer BC ==
--- OUTSIDE RECORDS SUMMARY | 2025-06-17 11:36 | XMS REPORT | Continuity of Care Document ---
Author Name Unknown Address [address] [facility] [address] [place] [address] [facility] [address] [facility] [address] [place] [address] Care Team Providers Care Hospice Educator Name Role Phone PCP, PATIENT DOES NOT HAVE A Primary Care Physic ubaldo Unavailable Sharon Zamora Attending Clinician Unavailable KATIANA GOMEZ Attending Clinician Unavailable Leeann Adams Attending Clinician UnavailFAITH Hooks Attending Clinician UnavailFaith Farias Attending Clinician Unknown, Attending Attending Clinician Unavailab Beatrice Grande Attending Clinician Unavailable Homar Stephenson Attending Clinician Unavailable NIKUNJ BAUMAN Attending Clinician Unavailable NIKUNJ BAUMAN Attending Clinician Unavailable Doctor Unassigned, [place] Attending Clinician U KAY Dietz Attending Clinician Unavailable Pcp, Patient Does Not Have A Attending Clinician GERMAIN HIDALGO Attending Clinician Unavail able GERMAIN HIDALGO Attending Clinician Unavail able Germain Hidalgo MD Attending Clinician [phone] ALTAGRACIAASHELYYossi Evans Attending Clinician Unavaila ida Altagracia [employer] TEAM LEADAngel Attending Clinician [phone] Lab, Ang - Db Attending Clinician Unavailable Katiana Gomez MD Attending Clinician [phone] Syed Michael Attending Clinician Unavailable KATIANA GOMEZ Admitting Clinician Unavailable Physician, No Primary or Family Admitting Clinic ubaldo Unavailable Leeann Adams Admitting Clinician UnavailSyed Giron Admitting Clinician Unavailable GERMAIN HIDALGO Admitting Clinician Unavail able Payers Payer Name Policy Type Policy Number Effective Date Expirati on Date Source [facility] [id number] 2021 00:00:00 [place] [id number] 2024 00:00:00 [place] [address] [id number] 2021 00:00:00 Common [facility] Problems Condition Name Condition Details Condition Category Status Onset Date Resolution Date Last Treatment Date Treating Clinician Comments Source Encounter for consultati on for female sterilizat ion Encounter for consultati on for female sterilizat ion Disease Active 10-06 00:00: 00 Overview: Formattin g of this note might be different from the original. Added automatic ally from request for surgery [id number] [facility] Gestationa l diabetes mellitus, antepartum Gestationa l diabetes mellitus, antepartum Disease Active 01-21 00:00: 00 [facility] Vaginal yeast infection Vaginal yeast infection Disease Active 01-21 00:00: 00 [facility] Abnormal maternal glucose tolerance, antepartum Abnormal maternal glucose tolerance, antepartum Disease Active 01-14 00:00: 00 Overview: Formattin g of this note might be different from the original. 1hr gtt 136mgdl, needs 3hr-faile d 3hr gtt Fasting 981hr 1972hr 1343hr 124 [facility] Multiparit y Multiparit y Disease Active 01-13 00:00: 00 [facility] Obesity affecting Obesity affecting Disease Active 01-13 00:00: 00 [facility] Supervisio n of high risk , antepartum Supervisio n of high risk , antepartum Disease Active 01-13 00:00: 00 [facility] History of hepatitis B History of hepatitis B Disease Active 01-13 00:00: 00 Overview: Formattin g of this note might be different from the original. In previous [facility] [id number] Type 2 diabetes mellitus with hyperglyce gilbert, without long-term current use of insulin Problem [facility] Anemia Mild anemia Problem [facility] [id number] History of Bray's palsy Problem [facility] [id number] detention (current) use of oral hypoglycem ic drugs Problem [facility] Allergies, Adverse Reactions, Alerts Allergy Name Allergy Type Status Severity Reaction(s) Onset Date Inactive Date Treating Clinician Comments Source No Known Drug Allergie s DA Active U 20 00:00: 00 [facility] No Known Drug Allergie s DA Active U 3-13 00:00: 00 [facility] No Known Drug Allergie s DA Active U 2021-09 0-12 00:00: 00 [facility] NO KNOWN ALLERGIE S Drug Class Active [facility] Social History Social Habit Start Date Stop Date Quantity Comments Source ASSERTION 2024-07-12 00:00:00 [facility] History of Tobacco Use [facility] Alcoholic beverage intake 2025-01-18 00:00:00 2025-01-18 00:00:00 Ex-drinker (finding) [facility] Exposure to SARS-CoV-2 (event) 2023-01-29 00:00:00 2023-02-08 07:44:00 Not sure [facility] Alcohol intake 2023-02-08 00:00:00 2023-02-08 00:00:00 Ex-drinker (finding) [facility] History of Social function 2022-12-14 00:00:00 2022-12-14 00:00:00 [facility] Tobacco use and exposure 2016-01-14 00:00:00 2016-01-14 00:00:00 Smokeless tobacco non-user [facility] Sex assigned at 1990 00:00:00 1990 00:00:00 [facility] Smoking Status Start Date Stop Date Source Never smoked tobacco [facility] Medications Ordered Medication Name Filled Medication Name Start Date Stop Date Current Medication? Ordering Clinician Indication Dosage Frequency Signature (SIG) Comments Components Source vit/iron fum/folic ac ( 1 + 1 ORAL) 01-18 17:26: [address] [place] Status: Inactive [facility] cetirizine 10 mg tablet 01-18 00:00: 00 Yes [id number] 10mg Take 1 tablet by mouth at bedtime as needed for Allergies or Runny nose. [facility] insulin glargine (LANTUS U-100 INSULIN) 100 unit/mL injection 12-06 00:00: 00 Yes inject under the skin. [facility] valACYclovi r (VALTREX) 1 gram tablet 01-04 00:00: 00 01-12 04:59 :00 No [id number] 1g Take 1 tablet by mouth in the morning and 1 tablet at noon and 1 tablet in the evening. Do all this for 7 days. [facility] gadoteridol (PROHANCE-2 0 mL) injection 0.2 mL/kg 12-31 15:45: 00 12-31 15:33 :00 No [id number] .2mL/kg 0.2 mL/kg, Intravenou s, ONCE, 1 dose, On Tue12/31/22 at 1045, Routine [facility] acetaminoph en (TYLENOL) tablet 1,000 mg 12-22 15:45: 00 12-22 14:42 :00 No 1000mg 1,000 mg, Oral, ONCE, 1 dose, On Tue12/22/22 at 1045, Routine [facility] gabapentin (NEURONTIN) capsule 300 mg 12-22 14:30: 00 12-22 14:42 :00 No 300mg 300 mg, Oral, ONCE, 1 dose, On Tue12/22/22 at 0930, ERIK [facility] gabapentin 300 mg capsule 12-22 00:00: 00 12-30 04:59 :00 No [id number] 300mg Take 1 capsule by mouth in the morning and 1 capsule at noon and 1 capsule in the evening. Do all this for 7 days. [facility] LEVEMIR FLEXTOUCH U-100 INSULN 100 unit/mL (3 mL) injection 2021-09 0 00:00: 00 12-14 00:00 :00 No [facility] proMETHazin e (PHENERGAN) 25 mg tablet 01-22 00:00: 00 10-06 00:00 :00 No [id number] 25mg Take 1 tablet by mouth every 4 (four) hours as needed for Nausea and Vomiting (N/V). [facility] clotrimazol e (CLOTRIMAZO LE-7) 1 % vaginal cream 01-21 00:00: 00 10-06 00:00 :00 No [id number] 1{appli cator} Insert 1 Applicator into vagina at bedtime. [facility] PNV without Ca-Iron PsCmplx-FA (SELECT-OB, FOLIC ACID,) 29-1 mg Chew 01-13 00:00: 00 Yes [id number] 1{each} Take 1 Each by mouth daily. [facility] PNV without Ca-Iron PsCmplx-FA (SELECT-OB, FOLIC ACID,) 29-1 mg Chew 01-13 00:00: 00 Yes [id number] 1{each} Take 1 Each by mouth daily. [facility] metFORMIN HCl 1000 MG metFORMIN HCl 1000 MG No 1{table t_with_ a_meal} BID metFORMIN HCl 1000 MG Vital Signs Vital Name Observation Time Observation Value Comments S sofia Systolic blood pressure 2025-01-18 22:27:00 120 mm[Hg] [facility] Diastolic blood pressure 2025-01-18 22:27:00 77 mm[Hg] [facility] Heart rate 2025-01-18 22:27:00 95 /min [facility] Body temperature 2025-01-18 22:27:00 36.83 Eleni [facility] Respiratory rate 2025-01-18 22:27:00 13 /min [facility] Body height 2025-01-18 22:27:00 154.9 cm [facility] Body weight 2025-01-18 22:27:00 94.212 kg [facility] BMI 2025-01-18 22:27:00 39.24 kg/m2 [facility] Oxygen saturation in Arterial blood by Pulse oximetry 2025-01-18 22:27:00 99 /min [facility] height 2024-08-16 08:00:00 61 [in_i] [facility]mo n [facility] weight 2024-08-16 08:00:00 207.2 [lb_av] Co mmon [facility] temperature 2024-08-16 08:00:00 97.9 [degF] Com mon [facility] bmi 2024-08-16 08:00:00 39.15 kg/m2 Comm on [facility] oximetry 2024-08-16 08:00:00 97 % [facility] respiratory rate 2024-08-16 08:00:00 15 /min [facility] blood pressure systolic 2024-08-16 08:00:00 114 mm[Hg] Common [facility] blood pressure diastolic 2024-08-16 08:00:00 72 mm[Hg] Common [facility] height 2024-05-16 08:00:00 61 [in_i] Commo n [facility] weight 2024-05-16 08:00:00 202.0 [lb_av] Co mmon [facility] temperature 2024-05-16 08:00:00 97.2 [degF] Com [facility] bmi 2024-05-16 08:00:00 38.16 kg/m2 Comm on [facility] oximetry 2024-05-16 08:00:00 95 % Commo n [facility] respiratory rate 2024-05-16 08:00:00 15 /min [facility] blood pressure systolic 2024-05-16 08:00:00 124 mm[Hg] [facility] blood pressure diastolic 2024-05-16 08:00:00 77 mm[Hg] [facility] height 2024-05-16 08:00:00 61 [in_i] Commo n [facility] weight 2024-05-16 08:00:00 202.0 [lb_av] Co mmon [facility] temperature 2024-05-16 08:00:00 97.2 [degF] Com [facility] bmi 2024-05-16 08:00:00 38.16 kg/m2 Comm on [facility] oximetry 2024-05-16 08:00:00 95 % Commo n [facility] respiratory rate 2024-05-16 08:00:00 15 /min [facility] blood pressure systolic 2024-05-16 08:00:00 124 mm[Hg] Common [facility] blood pressure diastolic 2024-05-16 08:00:00 77 mm[Hg] [facility] height 2024-01-18 08:00:00 61 [in_i] Commo n [facility] weight 2024-01-18 08:00:00 200.4 [lb_av] Co mmon [facility] temperature 2024-01-18 08:00:00 98.2 [degF] Com [facility] bmi 2024-01-18 08:00:00 37.86 kg/m2 Comm on [facility] oximetry 2024-01-18 08:00:00 98 % Commo n [facility] respiratory rate 2024-01-18 08:00:00 15 /min [facility] blood pressure systolic 2024-01-18 08:00:00 119 mm[Hg] [facility] blood pressure diastolic 2024-01-18 08:00:00 74 mm[Hg] [facility] height 2023-10-19 08:20:00 61 [in_i] Commo n [facility] weight 2023-10-19 08:20:00 198.4 [lb_av] Co mmon [facility] temperature 2023-10-19 08:20:00 98.1 [degF] Com [facility] bmi 2023-10-19 08:20:00 37.48 kg/m2 Comm on [facility] oximetry 2023-10-19 08:20:00 96 % Commo n [facility] respiratory rate 2023-10-19 08:20:00 15 /min [facility] blood pressure systolic 2023-10-19 08:20:00 111 mm[Hg] [facility] blood pressure diastolic 2023-10-19 08:20:00 73 mm[Hg] [facility] height 2023-07-21 08:20:00 61 [in_i] Commo n [facility] weight 2023-07-21 08:20:00 201.4 [lb_av] Co [facility] temperature 2023-07-21 08:20:00 97.2 [degF] Com [facility] bmi 2023-07-21 08:20:00 38.05 kg/m2 Comm on [facility] oximetry 2023-07-21 08:20:00 95 % Commo n [facility] respiratory rate 2023-07-21 08:20:00 15 /min [facility] blood pressure systolic 2023-07-21 08:20:00 107 mm[Hg] [facility] blood pressure diastolic 2023-07-21 08:20:00 69 mm[Hg] Common [facility] weight 2023-04-20 08:20:00 200.2 [lb_av] Co mmon [facility] temperature 2023-04-20 08:20:00 97.3 [degF] Com mon [facility] bmi 2023-04-20 08:20:00 37.82 kg/m2 Comm on [facility] oximetry 2023-04-20 08:20:00 95 % Commo n [facility] respiratory rate 2023-04-20 08:20:00 15 /min [facility] blood pressure systolic 2023-04-20 08:20:00 108 mm[Hg] [facility] blood pressure diastolic 2023-04-20 08:20:00 72 mm[Hg] [facility] height 2023-04-20 08:20:00 61 [in_i] Commo n [facility] Systolic blood pressure 2023-02-08 13:23:00 112 mm[Hg] [place] [facility] Diastolic blood pressure 2023-02-08 13:23:00 75 mm[Hg] [facility] Heart rate 2023-02-08 13:23:00 72 /min [facility] height 2023-02-08 13:23:00 162.6 cm [facility] weight 2023-02-08 13:23:00 88.451 kg [facility] BMI 2023-02-08 13:23:00 33.47 kg/m2 [facility] Oxygen saturation in Arterial blood by Pulse oximetry 2023-02-08 13:23:00 96 /min [facility] height 2023-01-20 08:40:00 61 [in_i] Commo n [facility] weight 2023-01-20 08:40:00 197.4 [lb_av] Co mmon [facility] temperature 2023-01-20 08:40:00 98.1 [degF] Com mon [facility] bmi 2023-01-20 08:40:00 37.29 kg/m2 Comm on [facility] oximetry 2023-01-20 08:40:00 95 % Commo n [facility] respiratory rate 2023-01-20 08:40:00 15 /min [facility] blood pressure systolic 2023-01-20 08:40:00 117 mm[Hg] [facility] blood pressure diastolic 2023-01-20 08:40:00 75 mm[Hg] [facility] Systolic blood pressure 2023-01-04 13:13:00 116 mm[Hg] [facility] Diastolic blood pressure 2023-01-04 13:13:00 79 mm[Hg] [facility] Heart rate 2023-01-04 13:13:00 80 /min [facility] Body height 2023-01-04 13:13:00 162.6 cm [facility] Body weight 2023-01-04 13:13:00 88.905 kg [facility] BMI 2023-01-04 13:13:00 33.64 kg/m2 [facility] Oxygen saturation in Arterial blood by Pulse oximetry 2023-01-04 13:13:00 98 /min [facility] Systolic blood pressure 2022-12-22 12:50:00 133 mm[Hg] [facility] Diastolic blood pressure 2022-12-22 12:50:00 88 mm[Hg] [facility] Heart rate 2022-12-22 12:50:00 65 /min [facility] Body temperature 2022-12-22 12:50:00 37 Eleni [facility] Respiratory rate 2022-12-22 12:50:00 18 /min [facility] Body weight 2022-12-22 12:50:00 88.905 kg [facility] BMI 2022-12-22 12:50:00 35.85 kg/m2 [facility] Oxygen saturation in Arterial blood by Pulse oximetry 2022-12-22 12:50:00 99 /min [facility] Systolic blood pressure 2022-12-14 16:17:00 118 mm[Hg] [facility] Diastolic blood pressure 2022-12-14 16:17:00 78 mm[Hg] [facility] Heart rate 2022-12-14 16:17:00 61 /min [facility] Body height 2022-12-14 16:17:00 157.5 cm [facility] Body weight 2022-12-14 16:17:00 88.905 kg [facility] BMI 2022-12-14 16:17:00 35.85 kg/m2 [facility] Oxygen saturation in Arterial blood by Pulse oximetry 2022-12-14 16:17:00 96 /min [facility] height 2022-10-22 08:00:00 61 [in_i] Commo n [facility] weight 2022-10-22 08:00:00 190.6 [lb_av] Co mmon [facility] temperature 2022-10-22 08:00:00 97.6 [degF] Com mon [facility] bmi 2022-10-22 08:00:00 36.01 kg/m2 Comm on [facility] oximetry 2022-10-22 08:00:00 97 % Commo n [facility] respiratory rate 2022-10-22 08:00:00 16 /min [facility] blood pressure systolic 2022-10-22 08:00:00 119 mm[Hg] Common [facility] blood pressure diastolic 2022-10-22 08:00:00 77 mm[Hg] [facility] Systolic blood pressure 2022-10-06 15:23:00 123 mm[Hg] [facility] Diastolic blood pressure 2022-10-06 15:23:00 86 mm[Hg] [facility] Heart rate 2022-10-06 15:23:00 65 /min [facility] Body temperature 2022-10-06 15:23:00 36.67 Eleni [facility] Respiratory rate 2022-10-06 15:23:00 16 /min [facility] Body height 2022-10-06 15:23:00 157.5 cm [facility] Body weight 2022-10-06 15:23:00 87.544 kg [facility] BMI 2022-10-06 15:23:00 35.30 kg/m2 [facility] Oxygen saturation in Arterial blood by Pulse oximetry 2022-10-06 15:23:00 99 /min [facility] height 2021-11-16 14:40:00 61 [in_i] Commo n [facility] weight 2021-11-16 14:40:00 194.8 [lb_av] Co mmon [facility] temperature 2021-11-16 14:40:00 97.8 [degF] Com mon [facility] bmi 2021-11-16 14:40:00 36.8 kg/m2 Commo n [facility] oximetry 2021-11-16 14:40:00 100 % Commo n [facility] respiratory rate 2021-11-16 14:40:00 16 /min [facility] blood pressure systolic 2021-11-16 14:40:00 116 mm[Hg] [facility] blood pressure diastolic 2021-11-16 14:40:00 76 mm[Hg] Common [facility] height 2021-10-15 13:20:00 61 [in_i] Commo n [facility] weight 2021-10-15 13:20:00 193.8 [lb_av] Co mmon [facility] temperature 2021-10-15 13:20:00 98.1 [degF] Com mon [facility] bmi 2021-10-15 13:20:00 36.61 kg/m2 Comm on [facility] oximetry 2021-10-15 13:20:00 99 % Commo n [facility] respiratory rate 2021-10-15 13:20:00 16 /min [facility] blood pressure systolic 2021-10-15 13:20:00 120 mm[Hg] [facility] blood pressure diastolic 2021-10-15 13:20:00 70 mm[Hg] [facility] Procedures Procedure Date / Time Performed Performing Clinician Source DRAINAGE OF AMNIOTIC FL, THERAP FROM POC, VIA OPEN 2025-03-15 00:00:[address] [facility] DELIVERY OF PRODUCTS OF CONCEPTION, EXTERNAL APPRO 2025-03-15 00:00:[address] [facility] INTRODUCTION OF OTH HORMONE INTO PERIPH VEIN, PERC 2025-03-15 00:00:[address] [facility] STERILIZATION CONSENT FORM 2023-07-14 05:01:00 Doctor Unassigned, [place] MR BRAIN W WO CONTRAST 2022-12-31 15:37:00 Marcelo Hidalgo Gene [facility] NOTICE OF PRIVACY PRACTICES 2022-12-22 12:48:51 Doctor Unassigned, [place] [facility] CONSENT/REFUSAL FOR DIAGNOSIS AND TREATMENT 2022-12-22 12:46:40 Doctor Unassigned, [place] Encounters Start Date/Time End Date/Time Encounter Type Admission Type Attending Clinicians Care Facility Care Department Encounter ID Source 2024-05-15 14:04:00 Outpatient Sharon Zamora [facility] [id number] [facility] 2023-04-18 08:13:00 Outpatient Sharon Zamora [facility] [id number] [facility] 2023-01-18 13:42:[address] [facility] [id number] [facility] 2022-10-20 16:56:14 Outpatient Keith GAFFNEYKARMA [facility] [id number] [facility] 2022-02-01 10:30:01 [facility] [id number] [facility] 2021-11-12 09:59:02 Outpatient Sharon Zamora [facility] [id number] [facility] 2021-10-21 14:38:49 Outpatient Sharon Zamora [facility] [id number] [facility] 2021-10-21 14:34:32 Outpatient Sharon Zamora [facility] [id number] [facility] 2021-10-21 11:58:11 Outpatient Sharon Zamora [facility] [id number] [facility] 2021-10-21 11:03:[address] [facility] [id number] [facility] 2025-05-17 09:30:00 2025-05-17 09:30:00 Outpatient Leeann Vick [facility] LABO [id number] [facility] 2025-03-15 14:39:00 2025-03-17 16:52:00 Inpatient Leeann Vick [facility] OBPP [id number] [facility] 2025-01-18 17:00:00 2025-01-18 19:52:15 Outpatient FAITH KRAUS [facility] [id number] [facility] 2025-01-18 17:00:00 2025-01-18 17:20:00 Urgent Care Faith Christie, Attending [facility] [id number] [facility] 2024-12-06 14:33:00 2024-12-06 16:34:00 Emergency EM Beatrice Jeter [facility] BRANDI [id number] [facility] 2024-10-02 08:00:00 2024-10-02 08:00:00 Outpatient ELA Homar Stephenson [facility] [id number] [facility] 2024-09-04 10:00:00 2024-09-04 10:00:00 Outpatient NIKUNJ WESLEY VIEN [facility] [id number] [facility] 2024-08-16 00:00:00 2024-08-16 00:00:00 OFFICE VISIT ESTAB PT LEVEL 4 STLMLC STLMLC [id number] [facility] 2024-05-16 00:00:00 2024-05-16 00:00:00 OFFICE VISIT ESTAB PT LEVEL 4 STLMLC STLMLC [id number] [facility] 2024-01-18 00:00:00 2024-01-18 00:00:00 OFFICE VISIT ESTAB PT LEVEL 3 STLMLC STLMLC [id number] [facility] 2023-10-19 00:00:00 2023-10-19 00:00:00 OFFICE VISIT ESTAB PT LEVEL 3 STLMLC STLMLC [id number] [facility] 2023-10-14 00:00:00 2023-10-14 00:00:00 (TEL) STLMLC STLMLC [id number] [facility] 2023-07-21 00:00:00 2023-07-21 00:00:00 OFFICE VISIT ESTAB PT LEVEL 3 STLMLC STLMLC [id number] [facility] 2023-07-14 00:00:00 2023-07-14 00:00:00 Orders Only Doctor Unassigned, [place] 1..114 [id number] [facility] 2023-06-03 15:00:00 2023-06-03 15:00:00 Outpatient KAY TOBIAS [facility] [id number] [facility] 2023-05-17 00:00:00 2023-05-17 00:00:00 Patient Secure Msg Pcp, Patient Does Not Have A [facility] 1.114 [id number] [facility] 2023-05-13 08:00:00 2023-05-13 08:00:00 Outpatient KAY TOBIAS [facility] [id number] [facility] 2023-05-11 17:35:15 2023-05-11 17:35:15 Outpatient [facility] [id number] Zane Crane 2023-04-20 00:00:00 2023-04-20 00:00:00 OFFICE VISIT ESTAB PT LEVEL 3 STLMLC STLMLC [id number] [facility] 2023-03-09 00:00:00 2023-03-09 00:00:00 Matt Askewssica [facility] 1.840.114 350.1.13.10 4.2.7.2.686 [id number] [facility] 2023-03-03 13:00:00 2023-03-03 13:00:00 Outpatient KAY TOBIAS [facility] [id number] [facility] 2023-02-23 00:00:00 2023-02-23 00:00:00 Patient Secure Msg Doctor Unassigned, [place] [facility] 1.840.114 350.1.13.10 4.2.7.2.686 [id number] [facility] 2023-02-08 08:00:00 2023-02-08 08:34:20 Outpatient Keith KAY BARRY [facility] [id number] [facility] 2023-02-08 08:00:00 2023-02-08 08:34:20 [facility] 1.2.840.114 350.1.13.10 4.2.7.2.686 [id number] [facility] 2023-02-04 08:30:00 2023-02-04 08:30:00 Outpatient Keith MATT BARRYSSICA [facility] [id number] [facility] 2023-01-26 00:00:00 2023-01-26 00:00:00 (TEL) STLMLC STLMLC [id number] [facility] 2023-01-25 00:00:00 2023-01-25 00:00:00 (WEB) STLMLC STLMLC [id number] [facility] 2023-01-20 00:00:00 2023-01-20 00:00:00 (ESTPTWM) Establishe d PT Women STLMLC STLMLC [id number] [facility] 2023-01-05 00:00:00 2023-01-05 00:00:00 Patient Secure Msg Doctor Unassigned, [place] [facility] 1.2.840.114 350.1.13.10 4.2.7.2.686 [id number] [facility] 2023-01-04 08:00:00 2023-01-04 08:32:21 Outpatient KAY TOBIAS [facility] [id number] [facility] 2023-01-04 08:00:00 2023-01-04 08:32:21 [facility] 1..840.114 350.1.13.10 4.2.7.2.686 [id number] [facility] 2023-01-04 00:00:00 2023-01-04 00:00:00 Patient Secure Msg Doctor Unassigned, [place] [facility] 1..840.114 350.1.13.10 4.2.7.2.686 [id number] [facility] 2023-01-03 10:00:00 2023-01-03 10:00:00 Outpatient KAY TOBIAS [facility] [id number] [facility] 2022-12-31 09:43:02 2022-12-31 23:59:00 Outpatient GERMAIN FISCHER HOWARD [facility] [id number] [facility] 2022-12-31 09:30:00 2022-12-31 23:59:00 Hospital Encounter Germain Hidalgo [facility] 1..840.114 350.1.13.10 4.2.7.2.686 [id number] [facility] 2022-12-29 00:00:00 2022-12-29 00:00:00 Outpatient GERMAIN FISCHER HOWARD [facility] [id number] [facility] 2022-12-22 07:52:00 2022-12-22 10:57:00 Emergency X ANGEL THAKKAR [facility] [id number] [facility] 2022-12-22 07:52:00 2022-12-22 10:57:00 Emergency Angel Thakkar F [facility] 1.2.840.114 350.1.13.10 4.2.7.2.686 [id number] [facility] 2022-12-22 00:00:00 2022-12-22 00:00:00 Orders Only Doctor Unassigned, [place] [facility] 1.840.114 350.1.13.10 4.2.7.2.686 [id number] [facility] 2022-12-14 11:45:00 2022-12-14 12:05:26 Associate Financial Analyst Visit Lab, Chao Garibay Rocky, [facility] 1.840.114 350.1.13.10 4.2.7.2.686 [id number] [facility] 2022-12-14 11:00:00 2022-12-14 11:48:22 Outpatient R GERMAIN HIDALGO HOWARD [facility] [id number] [facility] 2022-12-14 11:00:00 2022-12-14 11:48:22 Office Visit Rocky [facility] 1.840.114 350.1.13.10 4.2.7.2.686 [id number] [id number] [facility] 2022-12-13 13:00:00 2022-12-13 13:00:00 Outpatient KAY TOBIAS [facility] [id number] [facility] 2022-11-10 13:30:00 2022-11-10 13:30:00 Outpatient KATIANA HANNA [facility] [id number] [facility] 2022-10-25 00:00:00 2022-10-25 00:00:00 Telephone Katiana Gomez [facility] 1.840.114 350.1.13.10 4.2.7.2.686 [id number] [facility] 2022-10-22 00:00:00 2022-10-22 00:00:00 OFFICE VISIT EST PT LEVEL 3 STLMLC STLMLC [id number] [facility] 2022-10-20 14:00:00 2022-10-20 14:00:00 Outpatient R KATIANA GOMEZ [facility] [id number] [facility] 2022-10-06 09:30:00 2022-10-06 09:57:01 Outpatient R KATIANA GOMEZ [facility] [id number] [facility] 2022-10-06 09:30:00 2022-10-06 09:57:01 Office Visit AdKatiana hutton [facility] 1.2.840.114 350.1.13.10 4.2.7.2.686 [id number] [facility] 2022-10-06 00:00:00 2022-10-06 00:00:00 Patient Secure Msg Doctor Unassigned, [place] [facility] 1.2.840.114 350.1.13.10 4.2.7.2.686 [id number] [facility] 2022-10-06 00:00:00 2022-10-06 00:00:00 Prep For Surgery Katiana Gomez [facility] 1.2.840.114 350.1.13.10 4.2.7.2.686 [id number] [facility] 2022-07-07 11:27:00 2022-07-09 13:44:00 Inpatient Syed Britton [facility] [id number] [facility] 2021-11-30 00:00:00 2021-11-30 00:00:00 (TEL) STLMLC STLMLC [id number] [facility] 2021-11-16 00:00:00 2021-11-16 00:00:00 OFFICE VISIT EST PT LEVEL 3 STLMLC STLMLC [id number] [facility] 2021-11-05 00:00:00 2021-11-05 00:00:00 (TEL) STLMLC STLMLC [id number] [facility] 2021-10-15 00:00:00 2021-10-15 00:00:00 OFFICE VISIT EST PT LEVEL 3 STLMLC STLC [id number] [facility] 2020 16:20:00 2020 16:20:00 Outpatient [facility] [id number] [facility] 2020-01-21 13:00:00 2020-01-21 13:00:00 Outpatient [facility] [id number] [facility] 2019-11-22 15:00:00 2019-11-22 15:00:00 Outpatient [facility] [id number] [facility] 2019-10-23 15:20:00 2019-10-23 15:20:00 Outpatient [facility] [id number] [facility] Results Test Description Test Time Test Comments Results Result Co mments Source [id number] 15:36:00* Test Item Value Reference Range Interpretation Comme nts GLUBED (test code = GLUBED) 135 mg/dL 65-110 H [id number] 10:14:00* Test Item Value Reference Range Interpretation Comme nts GLUBED (test code = GLUBED) 139 mg/dL 65-110 H [id number] 06:10:00* Test Item Value Reference Range Interpretation Comme nts GLUBED (test code = GLUBED) 82 mg/dL 65-110 N [id number] 20:15:00* Test Item Value Reference Range Interpretation Comme nts GLUBED (test code = GLUBED) 150 mg/dL 65-110 H [id number] 15:50:00* Test Item Value Reference Range Interpretation Comme nts GLUBED (test code = GLUBED) 122 mg/dL 65-110 H [id number] 11:34:00* Test Item Value Reference Range Interpretation Comme nts GLUBED (test code = GLUBED) 126 mg/dL 65-110 H [id number] 06:00:00* Test Item Value Reference Range Interpretation Comme nts GLUBED (test code = GLUBED) 101 mg/dL 65-110 N [id number] 20:44:00* Test Item Value Reference Range Interpretation Comme nts GLUBED (test code = GLUBED) 111 mg/dL 65-110 H AG HEPATITIS B [id number] 17:55:00* Test Item Value Reference Range Interpretation Comme nts AG HEPATITIS B SURFACE (test code = HBSAG) NON REACTIVE NONREACTIVE AB HEPATITIS C [id number] 17:55:00* Test Item Value Reference Range Interpretation Comme nts AB HEPATITIS C (test code = HCVAB) NONREACTIVE NONREACTIVE SIGNAL TO CUTOFF (test code = CUTOFF) 0.17 <0.80 N AB [id number] 17:55:00* Test Item Value Reference Range Interpretation Comme nts AB TREPONEMA (test code = TREPAB) NONREACTIVE NONREACTIVE AB HIV 1 17:55:00* Test Item Value Reference Range Interpretation Comme nts AB HIV 1 2 (test code = FGF21ST) NONREACTIVE NONREACTIVE Done by [employer] 4[employer] HIV Ag/Ab Combo Screen [id number] 16:58:00* Test Item Value Reference Range Interpretation Comme nts GLUBED (test code = GLUBED) 87 mg/dL 65-110 N CBC W/AUTO [id number] 16:49:00* Test Item Value Reference Range Interpretation Comme nts WHITE BLOOD CELL (test code = WBC) 8.5 K/mm3 6.5-12.3 N RED BLOOD CELL (test code = RBC) 4.02 M/mm3 3.51-4.69 N HEMOGLOBIN (test code = HGB) 10.6 g/dL 10.1-13.8 N HEMATOCRIT (test code = HCT) 34.4 % 32.5-41.8 N MEAN CELL VOLUME (test code = MCV) 85.6 fL 84.6-96.6 N MEAN CELL HGB (test code = MCH) 26.4 pg 27.3-33.9 L MEAN CELL HGB CONCETRATION ( test code = MCHC) 30.8 gm/dL 32.0-34.2 L RED CELL DISTRIBUTION WIDTH (test code = RDW) 14.0 % 12.2-16.3 N PLATELET COUNT (test code = PLT) 227 K/mm3 134-363 N MEAN PLATELET VOLUME (test c ode = MPV) 11.0 fL 9.2-12.7 N NEUTROPHIL % (test code = NT%) 67.0 % 57.9-77.3 N LYMPHOCYTE % (test code = LY%) 22.7 % 14.5-29.7 N MONOCYTE % (test code = MO%) 6.9 % 3.6-10.2 N EOSINOPHIL % (test code = EO%) 2.8 % 0.0-3.0 N BASOPHIL % (test code = BA%) 0.2 % 0.1-0.9 N NEUTROPHIL # (test code = NT#) 5.7 K/mm3 LYMPHOCYTE # (test code = LY#) 1.9 K/mm3 MONOCYTE # (test code = MO#) 0.6 K/mm3 EOSINOPHIL # (test code = EO#) 0.24 K/mm3 BASOPHIL # (test code = BA#) 0.0 K/mm3 RUPTURE OF [id number] 15:33:00* Test Item Value Reference Range Interpretation Comme nts RUPTURE OF MEMBRANES (test c ode = ROM) NON-RUPTURED URINALYSIS [id number] 15:33:00* Test Item Value Reference Range Interpretation Comme nts UA COLOR (test code = COLU) YELLOW YELLOW UA APPEARANCE (test code = APPU) Slightly-Cloudy CLEAR UA GLUCOSE DIPSTICK (test code = DGLUU) NEGATIVE NEG UA BILIRUBIN DIPSTICK (test code = BILU) NEGATIVE NEG UA KETONE DIPSTICK (test cod e = KETU) 1+ NEG A UA SPECIFIC GRAVITY (test code = SGU) 1.010 1.001-1.035 N UA BLOOD DIPSTICK (test code = ANNI) NEG NEG UA PH DIPSTICK (test code = ANGELLA) 5.0 5-9 UA PROTEIN DIPSTICK (test code = PROU) NEGATIVE NEG UA UROBILINIOGEN DIPSTICK (test code = URO) NEGATIVE mg/dL NEG UA NITRITE DIPSTICK (test code = RENEE) NEG NEG UA LEUKOCYTE ESTERASE DIPSTICK (test code = LEUU) 3+ NEG A UA WBC (test code = WBCU) 3-5 #/hpf NONE SEEN A UA RBC (test code = RBCU) 6-10 #/hpf NONE SEEN A UA EPITHELIAL CELLS (test code = EPIU) RARE #/HPF RARE-FEW UA MUCUS (test code = MUCU) RARE NONE SEEN UA AMORPHOUS SEDIMENT (test code = AMORU) RARE URINE SAMPLE: CLEAN CATCHCBC (INCLUDES DIFF/PLT)2024-04-23 00:00:00* Test Item Value Reference Range Interpretation Comme nts ABSOLUTE BASOPHILS (test code = 704-7) 12 cells/uL See_Comment N [Automated m essage] The system which generated this result transmitted reference range: 0-200 cells/uL. The reference range was not used to interpret this result as normal/abnormal. ABSOLUTE EOSINOPHILS (test code = 711-2) 273 cells/uL See_Comment N [Automated m essage] The system which generated this result transmitted reference range: 15-500 cells/uL. The reference range was not used to interpret this result as normal/abnormal. ABSOLUTE LYMPHOCYTES (test code = 731-0) 1450 cells/uL See_Comment N [Automated m essage] The system which generated this result transmitted reference range: 850-3900 cells/uL. The reference range was not used to interpret this result as normal/abnormal. ABSOLUTE MONOCYTES (test code = 742-7) 429 cells/uL See_Comment N [Automated m essage] The system which generated this result transmitted reference range: 200-950 cells/uL. The reference range was not used to interpret this result as normal/abnormal. ABSOLUTE NEUTROPHILS (test code = 751-8) 3637 cells/uL See_Comment N [Automated m essage] The system which generated this result transmitted reference range: 9285-1326 cells/uL. The reference range was not used to interpret this result as normal/abnormal. BASOPHILS (test code = 706-2) 0.2 % N EOSINOPHILS (test code = 713-8) 4.7 % N HEMATOCRIT (test code = 4544-3) 39.5 % See_Comment N [Automated messa ge] The system which generated this result transmitted reference range: 35.0-45.0 %. The reference range was not used to interpret this result as normal/abnormal. HEMOGLOBIN (test code = 718-7) 12.2 g/dL See_Comment N [Automated messa ge] The system which generated this result transmitted reference range: 11.7-15.5 g/dL. The reference range was not used to interpret this result as normal/abnormal. LYMPHOCYTES (test code = 736-9) 25.0 % N MCH (test code = 785-6) 27.2 pg See_Comment N [Automated messa ge] The system which generated this result transmitted reference range: 27.0-33.0 pg. The reference range was not used to interpret this result as normal/abnormal. MCHC (test code = 786-4) 30.9 g/dL See_Comment L [Automated messa ge] The system which generated this result transmitted reference range: 32.0-36.0 g/dL. The reference range was not used to interpret this result as normal/abnormal. MCV (test code = 787-2) 88.0 fL See_Comment N [Automated messa ge] The system which generated this result transmitted reference range: 80.0-100.0 fL. The reference range was not used to interpret this result as normal/abnormal. MONOCYTES (test code = 5905-5) 7.4 % N MPV (test code = 776-5) 10.9 fL See_Comment N [Automated messa ge] The system which generated this result transmitted reference range: 7.5-12.5 fL. The reference range was not used to interpret this result as normal/abnormal. NEUTROPHILS (test code = 770-8) 62.7 % N PLATELET COUNT (test code = 777-3) 241 Thousand/uL See_Comment N [Automated message] The system which generated this result transmitted reference range: 140-400 Thousand/uL. The reference range was not used to interpret this result as normal/abnormal. RDW (test code = 788-0) 12.5 % See_Comment N [Automated messa ge] The system which generated this result transmitted reference range: 11.0-15.0 %. The reference range was not used to interpret this result as normal/abnormal. RED BLOOD CELL COUNT (test code = 789-8) 4.49 Million/uL See_Comment N [Automated message] The system which generated this result transmitted reference range: 3.80-5.10 Million/uL. The reference range was not used to interpret this result as normal/abnormal. WHITE BLOOD CELL COUNT (test code = 6690-2) 5.8 Thousand/uL See_Comment N [Automated message] The system which generated this result transmitted reference range: 3.8-10.8 Thousand/uL. The reference range was not used to interpret this result as normal/abnormal. HEMOGLOBIN [id number] 00:00:00* Test Item Value Reference Range Interpretation Comme nts HEMOGLOBIN A1c (test code = 4548-4) 6.7 % of total Hgb See_Comment H [Automated message] The system which generated this result transmitted reference range: <5.7 % of total Hgb. The reference range was not used to interpret this result as normal/abnormal. HEMOGLOBIN [id number] 00:00:00* Test Item Value Reference Range Interpretation Comme nts A1C (test code = 4548-4) 6.1 HEMOGLOBIN [id number] 00:00:00* Test Item Value Reference Range Interpretation Comme nts A1C (test code = 4548-4) 5.4 [id number] 10:15:00* Test Item Value Reference Range Interpretation Comme nts GLUBED (test code = GLUBED) 99 mg/dL 65-110 N [id number] 06:32:00* Test Item Value Reference Range Interpretation Comme nts GLUBED (test code = GLUBED) 101 mg/dL 65-110 N [id number] 20:57:00* Test Item Value Reference Range Interpretation Comme nts GLUBED (test code = GLUBED) 129 mg/dL 65-110 H [id number] 20:22:00* Test Item Value Reference Range Interpretation Comme nts GLUBED (test code = GLUBED) 176 mg/dL 65-110 H [id number] 10:29:00* Test Item Value Reference Range Interpretation Comme nts GLUBED (test code = GLUBED) 119 mg/dL 65-110 H [id number] 06:29:00* Test Item Value Reference Range Interpretation Comme nts GLUBED (test code = GLUBED) 124 mg/dL 65-110 H [id number] 21:07:00* Test Item Value Reference Range Interpretation Comme nts GLUBED (test code = GLUBED) 105 mg/dL 65-110 N AG HEPATITIS B [id number] 17:00:00* Test Item Value Reference Range Interpretation Comme nts AG HEPATITIS B SURFACE (test code = HBSAG) NONREACTIVE NONREACTIVE AB HEPATITIS C [id number] 17:00:00* Test Item Value Reference Range Interpretation Comme nts AB HEPATITIS C (test code = HCVAB) NONREACTIVE NONREACTIVE SIGNAL TO CUTOFF (test code = CUTOFF) 0.14 <0.80 N AB [id number] 17:00:00* Test Item Value Reference Range Interpretation Comme nts AB TREPONEMA (test code = TREPAB) NONREACTIVE NONREACTIVE AB HIV 1 17:00:00* Test Item Value Reference Range Interpretation Comme nts AB HIV 1 2 (test code = AZR28OT) NONREACTIVE NONREACTIVE Done by [employer] 4[employer] HIV Ag/Ab Combo Screen [id number] 15:45:00* Test Item Value Reference Range Interpretation Comme nts GLUBED (test code = GLUBED) 91 mg/dL 65-110 N COMPREHENSIVE METABOLIC [id number] 15:36:00* Test Item Value Reference Range Interpretation Comme nts SODIUM (test code = NA) 137 mEq/L 135-145 N POTASSIUM (test code = K) 3.8 mEq/L 3.5-5.0 N CHLORIDE (test code = CL) 102 mEq/L 100-115 N CARBON DIOXIDE (test code = CO2) 26 mEq/L 22-31 N ANION GAP (test code = GAP) 13.10 10-20 N GLUCOSE (test code = GLU) 83 mg/dL 65-110 N BLOOD UREA NITROGEN (test co de = BUN) 9 mg/dL 7-18 N GLOMERULAR FILTRATION RATE ( test code = GFR) 117 ml/min >60 N CREATININE (test code = CREAT) 0.6 mg/dL [...] 31 units/L 12-78 N ALKALINE PHOSPHATASE TOTAL ( test code = ALKP) 84 units/L 46-116 N UR PROTEIN/CREATININE [id number] 15:28:00* Test Item Value Reference Range Interpretation Comme nts UR PROTEIN RANDOM (test code = PROTU) <6.0 mg/dL UR CREATININE RANDOM (test code = CREATU) 33.3 mg/dL PROTEIN/CREATININE RATIO (te st code = P/CRATIO) 180.1 mg/gcrea <200 CBC W/AUTO [id number] 14:27:00* Test Item Value Reference Range Interpretation Comme nts WHITE BLOOD CELL (test code = WBC) [...] pg 27.3-33.9 N MEAN CELL HGB CONCETRATION ( test code = MCHC) 31.7 gm/dL 32.0-34.2 L RED CELL DISTRIBUTION WIDTH (test code = RDW) 13.0 % 12.2-16.3 N PLATELET COUNT (test code = PLT) 233 K/mm3 134-363 N MEAN PLATELET VOLUME (test c ode = MPV) 11.3 fL 9.2-12.7 N NEUTROPHIL % (test code = NT%) 74.8 [...] = BA#) 0.0 K/mm3 RBC MORPHOLOGY REQUIRED (subhash t code = RBCM) NORMAL NORMAL PLATELET MORPHOLOGY REQUIRED (test code = PLTMR) NORMAL NORMAL RUPTURE OF [id number] 13:57:00* Test Item Value Reference Range Interpretation Comme nts RUPTURE OF MEMBRANES (test c ode = ROM) NON-RUPTURED HEMOGLOBIN [id number] 00:00:00* Test Item Value Reference Range Interpretation Comme nts A1C (test code = 4548-4) 7.9 HEMOGLOBIN [id number] 00:00:00* Test Item Value Reference Range Interpretation Comme nts A1C (test code = 4548-4) 10.5 Notes Date/Time Note Provider Source 2025-03-16 05:09:00 [facility] OB Disch REPORT#:[id number] REPORT STATUS: Signed REPORT INITIALIZATION DATE:03/16/25 TIME: 508 PATIENT: MARY PADILLA UNIT #: [id number] ROOM/BED: [address] : 91 AGE: 34 SEX: F ATTEND: Leeann Adams MD ADM AUTHOR: Leeann Adams MD REPT SERVICE DT/TIME: 03/16/25 0509 * ALL edits or amendments must be made on the electronic/computer document * Subjective Subjective Admission EGA: Weeks: 37 Days: 1 EGA at delivery (wks/days): 37 weeks Status/day: post (day #1) Patient reports: Patient reports: Yes: normal lochia, pain management effective, tolerating po well, voiding well, voiding without pain, tolerating ambulation, flatus. No: complaints. Objective General VS: Vital Signs Date Temp Pulse Resp B/P B/P Mean Pulse Ox FiO2 03/15-03/16 97.9-98.6 54-80 17-19 106-151/60-83 80.0-110.0 98-99 Last Documented: Result Date Time Pulse Ox 98 06/21 0356 B/P 109/68 03/16 356 B/P Mean 81.5 03/16 356 O2 Delivery Room air 03/16 356 Temp 98.1 03/16 356 Pulse 55 03/16 356 Resp 19 03/16 356 PATIENT WEIGHT: Weight (lb): Weight (oz): Weight (kg): [phone] Physical Exam Neuro: Exam: alert, oriented x3, normal speech, CNII-XII grossly intact Abdomen: post gravid, soft, no abnormal tenderness, no guarding, no rebound tenderness Uterus: involution appropriate, non-tender Fundus: firm, below the umbilicus, non-tender Lochia: normal Lower extremities: Edema: trace Results Findings/Data: Laboratory Tests: 03/15 03/15 03/15 2041 1655 1550 Chemistry POC Glucose (65 - 110 mg/dL) 111 H 87 Hematology WBC (6.5 - 12.3 K/mm3) 8.5 RBC (3.51 - 4.69 M/mm3) 4.02 Hgb (10.1 - 13.8 g/dL) 10.6 Hct (32.5 - 41.8 %) 34.4 MCV (84.6 - 96.6 fL) 85.6 MCH (27.3 - 33.9 pg) 26.4 L MCHC (32.0 - 34.2 gm/dL) 30.8 L RDW (12.2 - 16.3 %) 14.0 Plt Count (134 - 363 K/mm3) 227 MPV (9.2 - 12.7 fL) 11.0 Neut % (Auto) (57.9 - 77.3 %) 67.0 Lymph % (Auto) (14.5 - 29.7 %) 22.7 [place] % (Auto) (3.6 - 10.2 %) 6.9 Eos % (Auto) (0.0 - 3.0 %) 2.8 Baso % (Auto) (0.1 - 0.9 %) 0.2 Neut # (Auto) (K/mm3) 5.7 Lymph # (Auto) (K/mm3) 1.9 [place] # (Auto) (K/mm3) 0.6 Eos # (Auto) (K/mm3) 0.24 Baso # (Auto) (K/mm3) 0.0 Serology Treponema pallidum Ab (NONREACTIVE) NONREACTIVE Hep Bs Antigen (NONREACTIVE) NON REACTIVE Hepatitis C Antibody (NONREACTIVE) NONREACTIVE Hep C Ab Signal/Cutoff (<0.80) 0.17 HIV 1 2 Antibody (NONREACTIVE) NONREACTIVE Discharge Summary General Assessment: nml progress, type II diabetes Date of admission: Date of admission: 03/15/25 Admission diagnosis: vbonkkal-zcm-rynfdoeq, IUGR Hospital course: induction of labor, spontaneous vag delivery, nml postop/ postpart care Procedures: spontaneous vaginal deliv Discharge condition: stable Discharge to: Home/Self Care Discharge diagnosis: full-term uncomp delivery, pre-existing diabetes Discharge management: less than 30 mins Baby A: Vaginal delivery: spontaneous status: live born Gender: male 1 minute: 8 5 minutes: 9 Anomalies: none Nursing data: The data set between the solid lines has been imported from nursing documentation. Any exceptions have been noted below under Provider comments. Delivery date infant A: 03/15/25 Delivery time A: 2301 Birthweight (gm) A: 2400 Feeding preference: Gender A: Male 1 minute infant A: 8 5 minutes infant A: 9 10 minutes infant A: Provider comments on imported nursing data: [] Plan: routine care, discharge tomorrow Vaginal packing at delivery: No Discharge Instructions Instructions: routine instr sheet given Diet: Diabetic Activity: As Tolerated, No Wesley for 6 Wks, No Strenuous Activity Additional discharge routines: Attending Follow-Up Contraception discussed: abstinence for 4-6 weeks, will discuss at PP visit Discharge meds: Stop taking the following medications: INSULIN GLARGINE (LANTUS) 100 UNIT/ML VIAL 0 UNITS SUBCUTANEOUS BEDTIME. Continue taking these medications: PNV WITH CA/IRON/FA/DHA (PNV-OMEGA SOFTGEL) 28 MG IRON-1 MG-300 MG CAP 1 CAPSULE ORAL DAILY. metFORMIN (GLUCOPHAGE) 1,000 MG TAB 2,000 MILLIGRAM ORAL TWICE DAILY. Instructions: TAKE WITH MEALS Start taking the following new medications: IBUPROFEN (MOTRIN) 600 MG TAB 600 MILLIGRAM ORAL EVERY 6 HOURS NEEDED. as needed for PAIN SCALE 1-3 ( USE 1ST) Qty = 30 No Refills Prescriptions: e-prescribe at 0600 RPT #:[id number] END OF REPORT [facility] 2025-03-15 23:15:00 [facility] OB Delivery Note REPORT#:[id number] REPORT STATUS: Signed REPORT INITIALIZATION DATE:03/15/25 TIME: 2314 PATIENT: MARY PADILLA UNIT #: [id number] ROOM/BED: [address] : 91 AGE: 34 SEX: F ATTEND: Leeann Adams MD ADM AUTHOR: Leeann Adams MD REPT SERVICE DT/TIME: 03/15/252314 * ALL edits or amendments must be made on the electronic/computer document * OB Delivery Nursing Documentation Review Nursing data: The data set between the solid lines has been imported from nursing documentation. Any exceptions have been noted below under Provider comments. _ ROM date: ROM time: Membranes rupture method: AROM Amniotic fluid color: Clear Amniotic fluid amount: Steroids prior to arrival: Antibiotic prophylaxis given: Post hemorrhage risk score: Delivery date A: Delivery time infant A: Birthweight (gm) A: Weight (lb) infant A: Weight (oz) infant A: Gender infant A: Male 1 minute infant A: 5 minutes infant A: 10 minutes infant A: Cord pH obtained A: Vacuum time infant A: Vacuum # pulls A: Vacuum # popoffs A: QBL at delivery: Calculated suicide risk level: __ Provider comments on imported nursing data: [] Pre-delivery GBS status: GBS status: positive Prophylaxis administered: penicillin [place] evaluation at delivery: NRP certified personnel Admission EGA: Weeks: 37 Days: 1 EGA at delivery (wks/days): 37 weeks Blood Loss/Details Blood loss at delivery: <1K: no sx hypovol=no hem QBL at delivery (ml's): 25 Baby A Information Baby A information Delivery date: 03/15/25 Delivery time: 230 status: live born Wt of baby: not yet available Gender: male 1 minute: 8 5 minutes: 9 Presentation: vertex Anomalies: none ABG details Baby A Cord blood gases: not collected Nuchal cord Baby A Nuchal cord: no Vaginal Delivery Vaginal Delivery Vaginal delivery: Labor: induced Medications/Devices used: oxytocin Vaginal delivery: spontaneous Amniotic fluid: clear Anesthesia type: no anesthesia Episiotomy: none Laceration repair: not required Placenta: spontaneous, intact Count: correct, vag exam neg for sponges Vaginal packing: No Mother's condition: mother stable Infant's condition: stable in room Lacerations: Perineal laceration(s): none High vaginal laceration: no Extraction details OVD performed: no Shoulder dystocia present: no at 2316 RPT #:[id number] [facility]25-03[facility] 21:01:00 [facility]) OB Intrapart Prog Note REPORT#:[id number] REPORT STATUS: Signed REPORT INITIALIZATION DATE:03/15/25 TIME: 2100 PATIENT: MARY PADILLA UNIT #: [id number] ROOM/BED: [address] : 91 AGE: 34 SEX: F ATTEND: Leeann Adams MD ADM AUTHOR: Leeann Adams MD REPT SERVICE DT/TIME: 03/15/252100 * ALL edits or amendments must be made on the electronic/computer document * Subjective Subjective Admission EGA: Weeks: 37 Days: 1 Comments: Pt feeling more ctx. Objective Nursing Documentation Review Nursing data: The data set between the solid lines has been imported from nursing documentation. Any exceptions have been noted below under Provider comments. __ ROM date: ROM time: Calculated suicide risk level: __ Provider comments on imported nursing data: [] General VS: Last Documented: Result Date Time B/P Mean 110.0 03/15 1934 B/P 151/82 03/15 1934 Pulse 77 03/15 193 Temp 98.6 03/15 1532 Resp 17 03/15 1526 Vital Signs Date Temp Pulse Resp B/P B/P Mean Pulse Ox FiO2 03/15 98.6 72-78 17 119-151/60-83 87.0-110.0 PATIENT WEIGHT: Weight (lb): Weight (oz): Weight (kg): 97.628528 Objective Cervical/ exam: Dilatation (cm): 2 Effacement (%): 50 station: - 3 presentation: cephalic Suspected >/= 4500 grams No Uterine activity: Monitor: toco Frequency (description): regular (Q2-4) Current oxytocin: Indication: induction Infusion rate: 4.00 Procedures: artificial rupture memb (clear) FHR Evaluation Baby A: Baby A baseline: 130 bpm Baby A variability: moderate 6-25 bpm Baby A accelerations: 15 X 15 Baby A decelerations: none Baby A FHR category: category 1 Result Findings/Data: Laboratory Tests: 03/15 03/15 03/15 2041 1655 1550 Chemistry POC Glucose (65 - 110 mg/dL) 111 H 87 Hematology WBC (6.5 - 12.3 K/mm3) 8.5 RBC (3.51 - 4.69 M/mm3) 4.02 Hgb (10.1 - 13.8 g/dL) 10.6 Hct (32.5 - 41.8 %) 34.4 MCV (84.6 - 96.6 fL) 85.6 MCH (27.3 - 33.9 pg) 26.4 L MCHC (32.0 - 34.2 gm/dL) 30.8 L RDW (12.2 - 16.3 %) 14.0 Plt Count (134 - 363 K/mm3) 227 MPV (9.2 - 12.7 fL) 11.0 Neut % (Auto) (57.9 - 77.3 %) 67.0 Lymph % (Auto) (14.5 - 29.7 %) 22.7 [place] % (Auto) (3.6 - 10.2 %) 6.9 Eos % (Auto) (0.0 - 3.0 %) 2.8 Baso % (Auto) (0.1 - 0.9 %) 0.2 Neut # (Auto) (K/mm3) 5.7 Lymph # (Auto) (K/mm3) 1.9 [place] # (Auto) (K/mm3) 0.6 Eos # (Auto) (K/mm3) 0.24 Baso # (Auto) (K/mm3) 0.0 Serology Treponema pallidum Ab (NONREACTIVE) NONREACTIVE Hep Bs Antigen (NONREACTIVE) NON REACTIVE Hepatitis C Antibody (NONREACTIVE) NONREACTIVE Hep C Ab Signal/Cutoff (<0.80) 0.17 HIV 1 2 Antibody (NONREACTIVE) NONREACTIVE Diagnosis, Assessment Plan Assessment: normal FHR pattern, latent phase labor, normal progress of labor, Type II DM, IUGR Plan: anticipate vag delivery, continue current managmnt, continue labor induction, Switch fluids to LR. at 2105 RPT #:[id number] END OF REPORT [facility] 2025-03-15 17:00:00 [facility] OB Intrapart Prog Note REPORT#:[id number] REPORT STATUS: Signed REPORT INITIALIZATION DATE:03/15/25 TIME: 1700 PATIENT: MARY PADILLA UNIT #: [id number] ROOM/BED: [address] : 91 AGE: 34 SEX: F ATTEND: Leeann Adams MD ADM AUTHOR: Leeann Adams MD REPT SERVICE DT/TIME: 03/15/25 1700 * ALL edits or amendments must be made on the electronic/computer document * Subjective Subjective Admission EGA: Weeks: 37 Days: 1 Comments: Patient arrived delayed for her scheduled induction. She is nervous because she has not been induced before. She has no new complaints. She is ready for baby. Objective Nursing Documentation Review Nursing data: The data set between the solid lines has been imported from nursing documentation. Any exceptions have been noted below under Provider comments. __ ROM date: ROM time: Calculated suicide risk level: __ Provider comments on imported nursing data: [] General VS: Last Documented: Result Date Time B/P Mean 91.0 03/15 1532 B/P 119/72 03/15 1532 Temp 98.6 03/15 1532 Pulse 78 03/15 1532 Resp 17 03/15 1526 Vital Signs Date Temp Pulse Resp B/P B/P Mean Pulse Ox FiO2 03/15 98.6 78 17 119/72 91.0 PATIENT WEIGHT: Weight (lb): Weight (oz): Weight (kg): 97.037203 Objective Cervical/ exam: Dilatation (cm): 2 Effacement (%): 50 station: - 3 presentation: cephalic Suspected >/= 4500 grams No Uterine activity: Monitor: toco Frequency (description): irregular FHR Evaluation Baby A: Baby A baseline: 120 bpm Baby A variability: moderate 6-25 bpm Baby A accelerations: 15 X 15 Baby A decelerations: none Baby A FHR category: category 1 Result Findings/Data: Laboratory Tests: 03/15 03/15 1655 1550 Chemistry POC Glucose (65 - 110 mg/dL) 87 Hematology WBC (6.5 - 12.3 K/mm3) 8.5 RBC (3.51 - 4.69 M/mm3) 4.02 Hgb (10.1 - 13.8 g/dL) 10.6 Hct (32.5 - 41.8 %) 34.4 MCV (84.6 - 96.6 fL) 85.6 MCH (27.3 - 33.9 pg) 26.4 L MCHC (32.0 - 34.2 gm/dL) 30.8 L RDW (12.2 - 16.3 %) 14.0 Plt Count (134 - 363 K/mm3) 227 MPV (9.2 - 12.7 fL) 11.0 Neut % (Auto) (57.9 - 77.3 %) 67.0 Lymph % (Auto) (14.5 - 29.7 %) 22.7 [place] % (Auto) (3.6 - 10.2 %) 6.9 Eos % (Auto) (0.0 - 3.0 %) 2.8 Baso % (Auto) (0.1 - 0.9 %) 0.2 Neut # (Auto) (K/mm3) 5.7 Lymph # (Auto) (K/mm3) 1.9 [place] # (Auto) (K/mm3) 0.6 Eos # (Auto) (K/mm3) 0.24 Baso # (Auto) (K/mm3) 0.0 Diagnosis, Assessment Plan Assessment: normal FHR pattern, Type II DM, IUGR Plan: anticipate vag delivery, begin oxytocin, We reviewed the risks and benefits of pitocin. She agreed. Will AROM once antibiotics are done. All questions answered. at 1702 RPT #:[id number] END OF REPORT [facility] 2025-03-14 13:01:00 [facility] ([facility]) OB Admission / H P REPORT#:[id number] REPORT STATUS: Signed REPORT INITIALIZATION DATE:03/14/25 TIME: 130 PATIENT: MARY PADILLA UNIT #: [id number] ROOM/BED: : 91 AGE: 34 SEX: F ATTEND: Leeann Adams MD ADM AUTHOR: Leeann Adams MD REPT SERVICE DT/TIME: 03/14/25 1301 * ALL edits or amendments must be made on the electronic/computer document * OB History Nursing Documentation Review Nursing data: The data set between the solid lines has been imported from nursing documentation. Any exceptions have been noted below under Provider comments. Current data Steroids prior to arrival: ROM date: ROM time: EDC date: Gestational age (labor triage): Post hemorrhage risk score: Prior history : Para: Term: : Abortions spontaneous: Abortions induced: Living children: Ectopic: Stillbirths: Live births: deaths: Number of previous C/S: Reported maternal labs/data Blood type: Rh type: Rubella: Hepatitis B: HIV exposure test: VDRL: Group B beta strep: Rho(D) immune globulin this preg: Monitor mode - UA: Feeding preference: Calculated suicide risk level: Provider comments on imported nursing data: [] Chief complaint: scheduled induction HPI: Pt is a 34 yo at 37w0d with poorly controlled Type II DM here for induction of labor. Patient's has been comanaged with Dr. Stephenson who recommended delivery by this weekend due to poorly controlled DM and now growth restriction. Growth US on 03/12 showed EFW 2465g or 5#7oz (9%ile) with LELO 8.3 cm. Patient has requested a BTL if she needs a C/S for any reason. G1 FT , F, 6#9oz G2 FT , F, 6#11oz G3 FT , M, 6# G4 FT , F, 6# history: : 5 Term: 4 : 0 Abortus: 0 Living children: 4 Previous : none Current : Best EDC: 04/04/25 Admission EGA (weeks) 37 Admission EGA (days) 0 EDC based on: LMP Conditions of : diabetes - pre-existing Labs: Blood type: B Rh: positive Rubella: immune Hepatitis B: negative HIV: negative STD: negative Syphilis: currently negative GBS: positive Procedures: non stress test Genetic testing: NIPT neg Past History Additional Medical History: Type II DM Additional Surgical History: Denies Additional Family History Noncontributory Alcohol Use Denies EtOH use Drug Use Denies recreational drugs Smoking status for patients 13 years old or older: Never Smoker Medications: Home Medications: PNV WITH CA/IRON/FA/DHA (PNV-OMEGA SOFTGEL) 1 CAP PO DAILY metFORMIN (GLUCOPHAGE) 2,000 MG PO BID INSULIN GLARGINE (LANTUS) 0 UNITS SUBQ BEDTIME Allergies: Coded Allergies: No Known Drug Allergies (12/06/24) Review of Systems All systems rev neg: except as marked Objective General VS: PATIENT WEIGHT: Weight (lb): Weight (oz): Weight (kg): Physical Exam Neuro: Exam: alert, oriented x3, normal speech, CNII-XII grossly intact Abdomen: gravid, soft, no abnormal tenderness, no guarding, no rebound tenderness Musculoskeletal: normal inspection Genitourinary: no bladder distention Uterine activity: Monitor: toco Frequency (description): irritability Pelvic exam: Pelvis clinically adequate: yes Vulvar lesions: none Cervical/ exam: Dilatation (cm): 1 Effacement (%): 30 Est wt (gms): 2500 Suspected macrosomia: No Suspected >/= 4500 grams No station: - 3 presentation: cephalic Membranes: Membranes: Intact Lower extremities: Edema: trace Baby A: Baby A baseline: 140 bpm Baby A variability: moderate 6-25 bpm Baby A accelerations: 15 X 15 Baby A decelerations: none Baby A FHR category: category 1 Diagnosis, Assessment Plan Diagnosis, Assessment Plan Free Text A P: Pt is a 34 yo at 37w0d with Type II FM, IUGR here for IOL 1. Labor: start with cervical ripening then pitocin 2x2. Anticipate . 2. FHTs Cat I 3. GBS +: start PCN with labor/ROM 4. Pain: meds upon request 5. Type II DM: continue home meds, monitor BGs A4H in latent labor. 6. Desiring sterilization: pt requests BTL if C/S indicated. at 1310 RPT #:[id number] END OF REPORT [facility] 2024-12-12 15:17:00 [id number] [facility] [address], [place] [address] PATIENT NAME: MARY PADILLA ADMIT DATE: 12/06/24 ACCOUNT NO: [id number] ROOM NO: AGE: 34 SEX: F ADMITTING PHYSICIAN: ATTENDING PHYSICIAN: Beatrice Jeter MD ADMISSION DATE: 12/06/2024 14:33:00 This is triage evaluation dictated on patient, Mary Padilla, seen in OB ED on 12/06/2024 by Beatrice Jeter MD, triage hospitalist per request of Dr. Adams. HISTORY OF PRESENT ILLNESS: The patient is a 34-year-old -0-0-4 with unsure last menstrual period, and estimated date of confinement 04/04/2025. She presented at 23 and 0/7th weeks complaining of leakage of fluid since day prior. She stated since noon on the she had continued to leak clear fluid with some whitish component. She denied prior vaginal infections in the . She denied vaginal bleeding or contractions and reported good movements. She denied headaches, scotoma, or other symptoms of preeclampsia. She denied fever, chills, nausea, vomiting, diarrhea, constipation, or dysuria. She denied cough, sore throat, loss of taste and smell, or other symptoms of COVID. She was previously diagnosed with COVID on four occasions, last was in 2020. She has not received COVID vaccines. Her care began with Dr. Adams at approximately 12 weeks' gestation. Her next appointment is scheduled for 12/20. The is notable for preexisting diabetes. She states her hemoglobin A1c is now 7.5. Well controlled on insulin and oral medications. PAST MEDICAL HISTORY: Diabetes diagnosed in 2020, previously poorly controlled due to noncompliance, but now she states that most fasting levels are between 85 and 100, most 2-hour postprandials between 90 and 120 on current medications and appropriate diet. PAST SURGICAL HISTORY: Negative. ALLERGIES: NO KNOWN DRUG ALLERGIES. MEDICATIONS: vitamins, also Lantus 10 mg at bedtime, and metformin 2000 mg p.o. at bedtime. OBSTETRICAL HISTORY: In 2009, full-term vaginal delivery of female infant weighing 6 pounds 9 ounces. In 2011, full-term vaginal delivery of female weighing 7 pounds 11 ounces. In 2015, full-term vaginal delivery of male weighing 6 pounds 11 ounces. In 2021, full-term vaginal delivery of female weighing 6 pounds 5 ounces. She was diagnosed between her third and fourth pregnancies with diabetes. GYNECOLOGIC HISTORY: Monthly cycles. All Pap smears normal. No history of STDs. SOCIAL HISTORY: The patient denies tobacco, alcohol, or illicit drug use. She PATIENT NAME: MARY PADILLA lives with her spouse, a 38-year-old healthy male, and her four children. 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 Her job does not require lifting or chemical exposures. FAMILY HISTORY: Father with diabetes and hypertension. Brother with history of testicular cancer. REVIEW OF SYSTEMS: Ten-point review of systems negative except as stated above. PHYSICAL EXAMINATION: GENERAL: The patient is a well-nourished, well-developed female, in no acute distress, lying on triage stretcher in OB ED. VITAL SIGNS: Height 5 feet 1 inch, weight prior to the 200 pounds and current weight 203 pounds. Blood pressure 131/65 and 132/72, pulse 84, respirations 18, temperature 98.8, and O2 saturation on room air 96%. HEAD AND NECK: Within normal limits without lymphadenopathy or thyromegaly. CHEST: Unlabored breathing. HEART: Regular rate and rhythm. BREASTS: Deferred. ABDOMEN: Soft, nontender, gravid. PELVIC: On sterile speculum exam, no evidence of pooling. She was noted to have a thick, creamy, white discharge and wet prep was collected and sent. EXTREMITIES: Without edema. NEUROLOGIC: Nonfocal. The patient is awake, alert, and oriented x3. NST is category 1 for gestational age with baseline heart tones in the 140s, occasional 10 x 10 accelerations, no decelerations, and no contractions seen. LABORATORY DATA: Urinalysis with 1+ ketones, 3+ leukocytes, 6 to 10 rbc's, 3 to 5 wbc's, and rare epithelial cells. ROM Plus was negative. Urine culture was sent, but results are pending at the time of evaluation. Wet prep negative. ASSESSMENT AND PLAN: This is a 34-year-old at 23 weeks with type 2 diabetes, now well controlled in . She is a grand multip who presented complaining of leakage of fluid. No evidence of ruptured membranes is found. Urinalysis is questionable for possible urinary tract infection and urine culture was sent, but no treatment thus far. The patient is to notify her OB of the triage visit and the pending culture. She is to drink greater than 100 ounces of water daily and eat frequent small meals on the diabetic plan. She is to follow up as scheduled on 12/20 or earlier for vaginal bleeding, leakage of fluid, decreased movements, contractions with increased force and frequency, hematuria, dysuria, flank pain, temperature greater than 100.4, or other concerns. All instructions given verbally and questions answered. Dictated By: Beatrice Jeter MD Date Dictated: 12/12/2024 15:17:02 Date Transcribed: 12/12/2024 15:46:53 DSD/SEPIDEH/SARI PATIENT NAME: MARY PADILLA Receipt ID: [id number] Authenticated and Edited by Beatrice Jeter MD On 12/13/24 12:02:29 PM at 1205 PATIENT NAME: MARY PADILLA [facility] 2022-07-09 12:16:00 [facility] ([facility]) OB Disch Undelivered REPORT#:[id number] REPORT STATUS: Signed DATE:07/09/22 TIME: 1216 PATIENT: MARY PADILLA UNIT #: [id number] ROOM/BED: [address] : 91 AGE: 32 SEX: F ATTEND: Syed Michael MD ADM AUTHOR: Syed Michael MD * ALL edits or amendments must be made on the electronic/computer document * Subjective Subjective Patient reports: Patient reports: Yes: normal movement. No: complaints, abdominal pain, vaginal bleeding , leaking fluid, contractions. Objective General VS: Last Documented: Result Date Time B/P Mean 76.0 07/09 0754 Pulse Ox 98 07/09 0754 B/P 101/61 07/09 0754 Pulse 52 07/09 0754 Temp 98.8 07/08 2011 Resp 17 07/08 2011 Vital Signs Date Temp Pulse Resp B/P B/P Mean Pulse Ox FiO2 07/08-07/09 98.8 52-69 17 96-101/54-61 69.0-76.0 96-98 PATIENT WEIGHT: Weight (lb): 202 Weight (oz): 13.2 Weight (kg): 92.000 Physical Exam FHR evaluation: Baby A baseline: 140 bpm Baby A variability: moderate 6-25 bpm Baby A accelerations: 15 X 15 Baby A FHR category: category 1 HEENT: normocephalic w/o injury Neuro: Exam: alert, oriented x3 Abdomen: gravid, soft, no abnormal tenderness Uterus: soft, non-tender Discharge Undelivered General Free Text A P: ULTRASOUND: CEPHALIC, EFW 2104 GMS AT 15%, LELO 6.3 CM LOWER LIMITS OF NORMAL, NL UA DOPPLERS, BPP 8/8 Assessment: Patient is a 32 year old at 33+ weeks gestation admitted for oligo Plan: d/c home with precautions and increase PO hydration, has a scan scheduled with DR MARAL TUTTLE, she will see me the wekk after Hospital course: admitted, received celestone cours e and hydration, LELO went up to 6.3 (from 5), ROM test was negative Discharge to: Home/Self Care Discharge diagnosis: pre-existing diabetes (type II), IUP 33+ weeks, oligo Discharge Instructions Diet: Diabetic Activity: As Tolerated Additional Discharge Routines: PCP Follow-Up Notify PCP of these S/S: increase PO f luid, kick count precautions, labor precautions Prescriptions: Continue taking these medications: metFORMIN (GLUCOPHAGE) 1,000 MG TAB 1,000 MILLIGRAM ORAL TWICE DAILY. Instructions: TAKE WITH MEALS INSULIN DETEMIR (LEVEMIR) 100 UNIT/ML VIAL 20 UNITS SUBCUTANEOUS BEDTIME. INSULIN DETEMIR (LEVEMIR) 100 UNIT/ML VIAL 18 UNITS SUBCUTANEOUS BEFORE BREAKFAST. PNV WITH CA/IRON/FA/DHA (PRENATE ESSENTIAL) 28 MG IRON-1 MG-300 MG CAP 1 CAPSULE ORAL DAILY. PCP follow-up: PCP: Syed Michael MD PCP follow up timeframe: 1 wk Maral 2 wks Fernanda at 1232 RPT #:[id number] END OF REPORT [facility] 2022-07-08 22:17:00 [facility] OB Antepartum Prog Note REPORT#:[id number] REPORT STATUS: Signed DATE:07/08/22 TIME: 2216 PATIENT: MARY PADILLA UNIT #: [id number] ROOM/BED: [address] : 91 AGE: 32 SEX: F ATTEND: Syed Michael MD ADM AUTHOR: Syed Michael MD * ALL edits or amendments must be made on the electronic/computer document * Subjective Subjective Patient reports: Patient reports: Yes normal movement, No no complaints, No abdominal pain, No vaginal bleeding, No leaking fluid, No contractions Comments: I talked to her around 8am Objective Nursing Documentation Review Nursing data: The data set between the solid lines has been imported from nursing documentation. Any exceptions have been noted below under Provider comments. ROM date: ROM time: Labor onset date: Labor onset time: Provider comments on imported nursing data: [] VS: Last Documented: Result Date Time B/P Mean 69.0 07/08 2011 Pulse Ox 96 07/08 2011 B/P 96/54 07/08 2011 Temp 98.8 07/08 2011 Pulse 69 07/08 2011 Resp 17 07/08 2011 Vital Signs Date Temp Pulse Resp B/P B/P Mean Pulse Ox FiO2 07/08 98.8 69-71 17 96-122/54-67 69.0-86.0 96 PATIENT WEIGHT: Weight (lb): 202 Weight (oz): 13.2 Weight (kg): 92.000 Procedures: non stress test HEENT: normocephalic w/o injury Neuro: Exam: alert, oriented x3 Abdomen: gravid, soft, no abnormal tenderness Baby A: Baby A baseline: 140 bpm Baby A variability: moderate 6-25 bpm Baby A accelerations: 15 X 15 Baby A FHR category: category 1 Diagnosis, Assessment Plan Diagnosis, Assessment Plan Assessment: IUP 34 1/7 weeks with oligohydramnios and DM II Plan: continue current managmnt, betamethasone admin, surveillance, IV hydration, will repeat lelo in am at 2219 [facility] #:[id number] END OF REPORT [facility] 2022-07-07 20:03:00 [facility] OB Admission / H P REPORT#:[id number] REPORT STATUS: Signed DATE:07/07/22 TIME: 2002 PATIENT: MARY PADILLA UNIT #: [id number] ROOM/BED: 5042-A : 91 AGE: 32 SEX: F ATTEND: Syed Michael MD ADM AUTHOR: Syed Michael MD * ALL edits or amendments must be made on the electronic/computer document * OB History Chief complaint: oligo HPI: 32 y old at 34 weeks, a patient of Dr Oliva, who was admitted for IV hydration due to oligo, she said shes drinking a lot of water and has not had any leaking, no other complaints Past History Past Medical History: Reports: Diabetes mellitus (II). Additional Medical History: fibroid Past Surgical History: Denies: Abdominal surgery, Appendectomy, Bariatric procedure, CABG, Carotid endarterectomy, Cholecystectomy, , Dialysis shunt/AV fistula, Heart valve procedure, Hernia repair, Hysterectomy, Pacemaker, Spine surgery, Splenectomy, Tonsillectomy, Transplant recipient, Vascular procedure, , Amputation, Anesthesia complications, Bilateral tubal ligation, Bladder surgery, Breast biopsy/procedure, Carpal tunnel release, Cranial procedure, D C, Eye surgery, Feeding tube, Hip procedure, ICD, Indwelling IV catheter, Knee procedure, Lithotripsy, Lung surgery, Nephrectomy, PCI, Prostate surgery, Thyroidectomy, Tracheotomy, X RAY DEVELOPER shunt. Family History Denies: Abdominal aortic aneurysm, Anemia, Asthma, CAD < 40 yrs old, Cancer, Coagulopathy, Dementia/Alzheimer's dis, Depression/mood disorder, Diabetes, Heart disease, Hypertension, Kidney disease/stones, Seizure disorder, Stroke/TIA , Subarachnoid hemorrhage, Sudden cardiac , Thyroid disorder, , Connective tissue dis, Gallbladder disease, Hyperlipidemia, Neurofibromatosis, Sickle cell disease. Alcohol Use Denies EtOH use Drug Use Denies recreational drugs Smoking status for patients 13 years old or older: Never Smoker Allergies: Coded Allergies: No Known Drug Allergies (07/07/22) Review of Systems Constitutional: Denies: chills, fatigue, fever, generalized weakness, lethargy, malaise, recent wt loss, other. Skin: Denies: abrasion. Allergy/Immun: Denies: allergic reaction, anaphylaxis, hives, itching, rhinorrhea, sneezing, other. Eyes: Denies: redness. ENT: Denies: ear drainage. Respiratory: Denies: CARNES (dyspnea on exertion). Cardiovascular: Denies: chest pain. GI: Denies: abdominal pain. : Denies: dysuria. Musculoskeletal: Denies: arthritis. Objective General VS: Last Documented: Result Date Time Pulse Ox 97 07/07 1155 Pulse 77 07/07 1155 B/P Mean 91.0 07/07 1154 B/P 118/73 10/ 1154 Vital Signs Date Temp Pulse Resp B/P B/P Mean Pulse Ox FiO2 / 76-77 118/73 91.0 97 PATIENT WEIGHT: Weight (lb): 202 Weight (oz): 13.2 Weight (kg): 92.000 Physical Exam HEENT: normocephalic w/o injury Cardiac: regular rate and rhythm Lungs: clear to auscultation Breasts: deferred Neuro: Exam: alert, oriented x3 Abdomen: gravid, soft, no abnormal tenderness Diagnosis, Assessment Plan Diagnosis, Assessment Plan Assessment/Impression: IUP 34 weeks with oligo, DM II Plan: admit to observation, betamethasone admin, surveillance, labor precautions, hydration at 2008 RPT #[id number] END OF REPORT [facility]
[2025-06-17 12:22] LABS: Absolute Lymphocytes (CBC) 1.2 K/uL (0.7-4.9); Hematocrit 37.7 % (36.0-45.0); Hemoglobin 12.3 g/dL (12.0-15.0); MCH 26.4 pg (27.0-35.0); MCHC 32.6 g/dL (32.0-36.0); MCV 81.1 fL (80-100); MPV 7.4 fL (7.6-11.3); Nucleated RBC Absolute Count 0.0 (0-0); Nucleated Red Blood Cells % 0.0 % (0-0); RBC Red Blood Cell Count 4.65 M/uL (3.86-4.86); White Blood Count 4.90 thou/uL (4.3-10.9)
[2025-06-17 12:41] LABS: ALT/SGPT 32.0 U/L (13-56); AST/SGOT 20.0 U/L (15-37); Albumin 3.5 g/dL (3.4-5.0); Albumin/Globulin Ratio 0.8 (1.1-1.8); Alkaline Phosphatase 121.0 U/L (45-117); Anion Gap 7.0 mEq/L (5.0-15.0); BUN Blood Urea Nitrogen 11.0 mg/dL (7-18); Globulin 4.2 g/dL (2.3-3.5); Glucose Level 131.0 mg/dL (74-106); Lipase 29.0 U/L (13-75); Potassium 4.0 mEq/L (3.5-5.1)
--- NOTE | 2025-06-17 13:20 | RAD REPORT ---
EXAMINATION: Abdomen Pelvis W Contrast CLINICAL INDICATION: Female, 35 years old.right sided abd pain TECHNIQUE: CT abdomen and pelvis was performed, after the administration of IV contrast, as [facility]. Axial, sagittal and coronal reconstructions were obtained. One or more of the following dose reduction techniques were used: Automated exposure control, adjustment of the mA and/o r kV according to patient size, and/or iterative reconstruction. Unless otherwise specified, incidental findings do not require dedicated imaging follow-up. [id number]. COMPARISON: No prior exams FINDINGS: LOWER CHEST: No acute process identified.No significant pericardial effusion. UPPER GI: No significant abnormality. LIVER: Hepatic steatosis, but otherwise unremarkable. GALLBLADDER/BILE DUCTS: No biliary ductal dilatation.? PANCREAS: No mass, ductal dilation, or juan pablo-pancreatic fluid. SPLEEN: Unremarkable. ADRENALS: No adrenal masses. KIDNEYS AND URETERS: No hydronephrosis. Left interpolar renal cyst with calcium. Scarring at the medial right upper pole.No renal calculi.No ureteral calculi. ABDOMINAL AORTA AND OTHER VESSELS: Normal caliber aorta and IVC. PERITONEUM: No abnormal free fluid. No free air. LYMPH NODES: No pathologic lymphadenopathy. ABDOMINAL WALL: Small fat containing umbilical hernia. SMALL BOWEL/COLON: Small bowel has normal course and caliber. No colonic wall thickening or pericolon ic inflammatory changes.Normal appendix. URINARY BLADDER: Underdistended but grossly unremarkable. REPRODUCTIVE ORGANS: Asymmetrically enlarged left ovary measuring 4.7 x 3 cm. MUSCULOSKELETAL: No acute or suspicious osseous abnormality. ADDITIONAL FINDINGS: None. IMPRESSION: No acute findings within the abdomen or pelvis. No appendicitis. Asymmetrically enlarged left ovary. Consider pelvic ultrasound for further evaluation.
--- NOTE | 2025-06-17 16:14 | EDPHYS ---
Physician Documentation [facility] Name: Mary Knox Age: 35 yrs Sex: Female : 1990 Arrival Date: 06/17/2025 Time: 11:30 Bed 12 Private MD: ED Physician Julius Kurtz HPI: 06/17 12:37 This 35 yrs old Female presents to ER via Ambulatory with complaints of rn Abdominal Pain. 12:37 Patient reports right lower quadrant abdominal pain for 5 days. No fever or chills. No rn nausea or vomiting. No urinary symptoms. No history of kidney stones. Denies . LMP 2 weeks ago. Sent by urgent care to rule out appendicitis.. 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 - Infectious Disease History:: Denies. - Social history:: Smoking status: Patient denies any tobacco usage or history of. - Family history:: not pertinent. - Hospitalizations: : No recent hospitalization is reported. ROS: 12:37 Constitutional: Negative for fever, chills, and weight loss, Cardiovascular: Negative rn for chest pain, palpitations, and edema, Respiratory: Negative for shortness of breath, cough, wheezing, and pleuritic chest pain, Abdomen/GI: Positive for right lower quadrant abdominal pain Back: Negative for injury and pain, : Negative for injury, bleeding, discharge, and swelling, Exam: 12:37 Constitutional: This is a well developed, well nourished patient who is awake, alert, rn and in no acute distress. Cardiovascular: Regular rate and rhythm. No pulse deficits. Respiratory: No increased work of breathing, no retractions or nasal flaring. Abdomen/GI: Soft, mild right lower quadrant tenderness. No rebound or guarding. No peritoneal signs Vital Signs: 12:00 BP 112 / 79; Pulse 71; Resp 16; Pulse Ox 99% ; Weight 90.72 kg; Height 5 ft. 0 in. ; db Pain 6/10; 12:06 Temp 98.2; db 15:00 BP 111 / 82; Pulse 72; Resp 16; Pulse Ox 100% ; db 16:00 BP 110 / 78; Pulse 72; Resp 16; Pulse Ox 99% on R/A; db 12:00 Body Mass Index 39.06 (90.72 kg, 152.4 cm) db 12:00 Pain Scale: Adult db MDM: 11:34 Medical Screening Exam initiated rn 16:12 Differential diagnosis: appendicitis, bowel obstruction, Endometriosis, non-specific rn abd pain, Ovarian Torsion, Ureterolithiasis, urinary tract infection, Ovarian cyst. Data reviewed: vital signs, nurses notes, lab test result(s), radiologic studies, CT scan, ultrasound, and as a result, I will discharge patient. Independent interpretation of the following test(s) in the Emergency Department CT Scan: My interpretation is CT abdomen pelvis negative for urinary calculus per my interpretation. Counseling: I had a detailed discussion with the patient and/or guardian regarding the historical points, exam findings, and any diagnostic results supporting the discharge/admit diagnosis, lab results, radiology results, the need for outpatient follow up, to return to the emergency department if symptoms worsen or persist or if there are any questions or concerns that arise at home. Special discussion: Based on the patient's Hx, exam, and Dx evaluation, there is no indication for emergent surgery or inpatient Tx. It is understood by the patient/guardian that if the Sx's persist or worsen they need to return immediately for re-evaluation. I discussed with the patient/guardian in detail that at this point there is no indication for admission to the hospital. It is understood, however, that if the symptoms persist or worsen the patient needs to return immediately for re-evaluation. Based on the history and exam findings, there is no indication for further emergent testing or inpatient evaluation. I discussed with the patient/guardian the need to see the OB Gyne specialist for further evaluation of the symptoms. ED course: CT without acute findings, nonspecific findings near the left ovary, they recommended ultrasound, ultrasound shows bilateral ovarian cyst but good flow and negative for ovarian torsion. No masses otherwise suspicious for malignancy. Will discharge home with diclofenac and FOREST AIDE follow-up.. 06/17 12: Order name: CBC with Diff; Complete Time: 12:49 rn 06/17 12:07 Order name: CMP; Complete Time: 12:49 rn 06/17 12:07 Order name: Lipase; Complete Time: 12:49 rn 06/17 12:07 Order name: Test, Urine; Complete Time: 12:49 rn 06/17 12:07 Order name: CT Abd/Pelvis - IV Contrast Only; Complete Time: 13:43 rn 06/17 15:30 Order name: Transvaginal Study Probe EDMS 06/17 12:07 Order name: IV Saline Lock; Complete Time: 12:18 rn 06/17 12:07 Order name: Labs collected and sent; Complete Time: 12:18 rn Administered Medications: No medications were administered Disposition Summary: 06/17/25 16:13 Discharge Ordered Notes: Location: Home rn Problem: new rn Symptoms: have improved rn Condition: Stable rn Diagnosis - Abdominal pain, unspecified rn - Other ovarian cysts rn Followup: rn - With: Private Physician - When: As needed - Reason: Recheck today's complaints, Re-evaluation by your physician Discharge Instructions: - Discharge Summary Sheet rn - Abdominal Pain, Adult rn - Ovarian Cyst rn Forms: - Medication Reconciliation Form rn - Antibiotic yarn weigher - Prescription Opioid Use rn - Patient Portal Instructions rn - Leadership Thank You Letter rn Prescriptions: - Diclofenac Sodium 75 mg Oral tablet, delayed release (enteric coated) - take 1 tablet ORAL route 2 times per day As needed; 14 tablet; Refills: 0, rn Product Selection Permitted Signatures: Dispatcher [employer] Julius Miller MD MD rn Benton, Danielle, RN RN db Corrections: (The following items were deleted from the chart) 15:30 13:44 Pelvis Complete+US.RAD.BRZ ordered. EDAR EDMS
--- NOTE | 2025-06-17 16:14 | ER ---
Nurse's Notes [facility] Name: Mary Knox Age: 35 yrs Sex: Female : 1990 Arrival Date: 06/17/2025 Time: 11:30 Bed 12 Private MD: Diagnosis: Abdominal pain, unspecified;Other ovarian cysts Presentation: 06/17 12:00 Chief complaint: Patient states: RIGHT ABD PAIN X 5 DAYS. DENIES N/V. STATES WENT TO db URGENT CARE AND WAS REFERRED TO ED FOR IMAGING. Coronavirus screen: Client denies travel out of the [place] in the last 14 days. At this time, the client does not indicate any symptoms associated with coronavirus-19. Ebola Screen: Patient negative for fever greater than or equal to 101.5 degrees Fahrenheit, and additional compatible Ebola Virus Disease symptoms Patient denies exposure to infectious person. Patient denies travel to an Ebola-affected area in the 21 days before illness onset. No symptoms or risks identified at this time. Initial Sepsis Screen: Does the patient meet any 2 criteria? No. Patient's initial sepsis screen is negative. Does the patient have a suspected source of infection? No. Patient's initial sepsis screen is negative. Risk Assessment: Do you want to hurt yourself or someone else? Patient reports no desire to harm self or others. Onset of symptoms was June 17, 2025. 12:00 Method Of Arrival: Ambulatory db 12:00 Acuity: VIMAL 3 db Triage Assessment: 12:01 General: Appears in no apparent distress. uncomfortable, Behavior is calm, cooperative. db Pain: Complains of pain in abdomen. Neuro: Level of Consciousness is awake, alert, obeys commands, Oriented to person, place, time, situation. Respiratory: Airway is patent Respiratory effort is even, unlabored, Respiratory pattern is regular, symmetrical. GI: Abdomen is flat, non-distended, Reports lower abdominal pain, upper abdominal pain. 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 - Infectious Disease History:: Denies. - Social history:: Smoking status: Patient denies any tobacco usage or history of. - Family history:: not pertinent. - Hospitalizations: : No recent hospitalization is reported. Screenin:22 [facility] ED Fall Risk Assessment (Adult) History of falling in the last 3 months, db including since admission No falls in past 3 months (0 pts) Confusion or Disorientation No (0 pts) Intoxicated or Sedated No (0 pts) Impaired Gait No (0 pts) Mobility Assist Device Used No (0 pt) Altered Elimination No (0 pt) Score/Fall Risk Level 0 - 2 = Low Risk Oriented to surroundings, Maintained a safe environment. Abuse screen: Denies threats or abuse. Denies injuries from another. Nutritional screening: No deficits noted. Tuberculosis screening: No symptoms or risk factors identified. Assessment: 15:00 Reassessment: Patient appears in no apparent distress at this time. Patient and/or db family updated on plan of care and expected duration. Pain level reassessed. Patient is alert, oriented x 3, equal unlabored respirations, skin warm/dry/pink. General: Appears in no apparent distress. comfortable, Behavior is calm, cooperative. Neuro: Level of Consciousness is awake, alert, obeys commands, Oriented to person, place, time, situation. Respiratory: Airway is patent Respiratory effort is even, unlabored, Respiratory pattern is regular, symmetrical. 16:37 Reassessment: Patient appears in no apparent distress at this time. Patient and/or db family updated on plan of care and expected duration. Pain level reassessed. Patient is alert, oriented x 3, equal unlabored respirations, skin warm/dry/pink. Vital Signs: 12:00 BP 112 / 79; Pulse 71; Resp 16; Pulse Ox 99% ; Weight 90.72 kg; Height 5 ft. 0 in. ; db Pain 6/10; 12:06 Temp 98.2; db 15:00 BP 111 / 82; Pulse 72; Resp 16; Pulse Ox 100% ; db 16:00 BP 110 / 78; Pulse 72; Resp 16; Pulse Ox 99% on R/A; db 12:00 Body Mass Index 39.06 (90.72 kg, 152.4 cm) db 12:00 Pain Scale: Adult db ED Course: 11:32 Patient arrived in ED. im 11:34 Julius Kurtz MD is Attending Physician. rn 12:01 Triage completed. db 12:01 Arm band placed on Patient placed in an exam room. db 12:13 Esquivel, Nidia, RN is Primary Nurse. db 12:17 Initial lab(s) drawn, by me, sent to lab. Urine collected: clean catch specimen. rk3 Inserted saline lock: 20 gauge in right antecubital area, using aseptic technique. Blood collected. Flushed with 10 mL NS. 12:54 CT Abd/Pelvis - IV Contrast Only In Process Unspecified. EDMS 15:05 Patient moved back from ultrasound. db 15:22 Patient has correct armband on for positive identification. Bed in low position. Call db light in reach. Side rails up X 1. Pulse ox on. NIBP on. Warm blanket given. Pillow given. 15:30 Transvaginal Study Probe In Process Unspecified. EDMS 16:37 Provided Education on: DISCHARGE AND FOLLOWUP. db 16:37 No provider procedures requiring assistance completed. IV discontinued, intact, db bleeding controlled, No redness/swelling at site. Administered Medications: No medications were administered Medication: 15:22 VIS not applicable for this client. db Outcome: 16:13 Discharge ordered by . rn 16:37 Discharged to home ambulatory, with family, db 16:37 Condition: stable 16:37 Discharge instructions given to patient, family, Instructed on discharge instructions, follow up and referral plans. Prescriptions given X 1, 16:38 Patient left the ED. db Signatures: Dispatcher [employer] EDMS Julius Kurtz MD MD rn Benton, Danielle, RN RN Marguerite Sheets Rozana [id number]
--- NOTE | 2025-06-17 16:54 | RAD REPORT ---
EXAMINATION: US Transvaginal Study Probe CLINICAL INDICATION: Female 35 years old. 2 weeks ago right sided abd pain TECHNIQUE: Real-time ultrasonography of the pelvis was performed transvaginally. Color and spectral D oppler evaluation of the ovaries was performed. COMPARISON: No prior exam. FINDINGS: UTERUS AND CERVIX: The uterus measures 9.5 cm in length. The uterus is normal. No masses seen The end ometrium is normal, 0.5 cm in thickness. RIGHT OVARY: Normal The right ovary measures 2.9 x 2.3 x 1.8 cm. Normal color and spectral Doppler evaluation of the right ovary.. LEFT OVARY: Normal The left ovary measures 4.6 x 4.0 x 3.6 cm. Normal color and spectral Doppler evaluation of the left ovary.. Left ovarian dominant cysts or follicles largest measuring 3 cm. FREE FLUID: No free fluid. IMPRESSION: No suspicious abnormalities of the uterus or adnexae.
[2025-06-17 17:09] VITALS: TEMP 98.2
[2025-06-17 17:12] VITALS: BP 110/78; O2SAT 99
== END 2025-06-17 16:38 | disposition home or self-care (01) ==
LOC: ER 11:30
DX: N83.299 Other ovarian cyst, unspecified side (principal)
CPT/HCPCS: 85025; 36415; 81025; 83690; 80053; 74177; 76830; 99284; Q9967